=== PATIENT | female | born 1950 | race Caucasian/White ===

== ENCOUNTER 2018-08-26 11:35 | Observation (INO) | payer MEDICARE, OTHER ==
[2018-08-26] MEDS ORDERED: Sodium Chloride 0.9% 1000 ML 1,000 ML IV SCH (11:45)
[2018-08-26 11:55] LABS: BASOPHIL % 0.9 % (0.0-0.4); Basophil (Absolute #) 0.07 (0-0.4); Eosinophil % 1.8 % (0.00-5.0); Eosinophil (Absolute #) 0.14 (0-0.5); Granulocyte Absolute (ANC) 4.49 (1.4-6.9); Granulocytes % 58.3 % (36.0-66.0); Hematocrit 42.3 % (35-47); Hemoglobin 13.8 gm/dl (12.0-16.0); Lymphocyte (Absolute #) 2.44 (1.0-4.6); Lymphocytes % 31.6 % (24.0-44.0); Mean Corpuscular Hemoglobin 28.4 pg (26-32); Mean Corpuscular Hgb Concent. 32.6 g/dl (32-36); Mean Platelet Volume 9.9 fl (6-9.5); Monocyte (Absolute #) 0.57 (0.0-1.3); Monocytes % 7.4 % (0.0-12.0); Platelet Count 259 K/mm3 (150-450); Red Blood Count 4.86 M/mm3 (4.1-5.4); Red Cell Distribution Width 14.8 % (11.5-14.0); White Blood Count 7.7 K/mm3 (4.0-10.5)
--- NOTE | 2018-08-26 12:12 | XRAY ---
Indication: Chest pain. Comparison: September 04, 2010. PA/lateral chest demonstrates normal heart and lungs again with incidental right base calcified granuloma. Bony thorax intact again with minimal degenerative changes. No new/acute findings. Impression: Nonacute chest with chronic features.
[2018-08-26] MEDS ORDERED: Sodium Chloride 0.9% 1000 ML 1,000 ML ONE (12:22)
[2018-08-26 12:38] LABS: ALKALINE PHOSPHATASE 63 U/L (38-126); ANION GAP 16.6 MEQ/L (5-15); BLOOD UREA NITROGEN 15 mg/dL (7-17); CHLORIDE 95 mmol/L (98-107); Calcium 10.3 mg/dL (8.4-10.2); Carbon Dioxide 28 mmol/L (22-30); Creatinine 1 0.65 mg/dL (0.52-1.04); Glucose 98 mg/dL (74-106); Potassium 4.4 mmol/L (3.5-5.1); SGOT/AST 30 U/L (14-36); SGPT/ALT 28 U/L (0-35); SODIUM 135 mmol/L (137-145); Total Protein 7.5 g/dL (6.3-8.2)
--- NOTE | 2018-08-26 12:47 | ERPHSYRPT ---
- History of Present Illness Historian: patient Exam Limitations: no limitations Patient Subjective Stated Complaint: pt here for chest pain for a week now off and on, worse today, states it is a pressure to left side of chest, pt had heart stent a year ago Triage Nursing Assessment: pt alert,resp easy, skin w/d/p, chest clear Physician History: Pt is a pleasant 67 y/o female with h/o CAD with a stent. Pt states, from last Saturday08/22/18, she had chest discomfort. Pt states, can't describe it, but she did not take anything for it. Pain was coming and going, and she had some radiation to the back. No pain in left UE or jaw. Pain did not change with inhalation, or change in position. No diaphoresis. No N/V/D. Non reproducible. Today the ain was worse, and pt called her PCP, that told her to come to ER. Timing/Duration: day(s) (From Saturday08/22/18) Activities at Onset: none Quality: aching Location: substernal (with radiation to the back) Chest Pain Radiation: back Severity of Pain-Max: moderate Severity of Pain-Current: none Modifying Factors: Improves With: nothing Associated Symptoms: denies symptoms Prior Chest Pain/Cardiac Workup: cardiac cath (With a stent that was placed a year ago.) Nitro Today/Relief: no nitro taken today Aspirin Treatment Today: 81 mg x 1 Allergies/Adverse Reactions: codeine Allergy (Verified 08/26/18 11:42) vomitting tramadol Adverse Reaction (Verified 08/26/18 11:43) Home Medications: Amlodipine Besylate 10 mg [Norvasc 10 MG] 10 mg PO DAILY 06/16/13 [History] Clopidogrel Bisulfate 75 mg [PLAVIX 75 MG Tablet] 75 mg PO DAILY 06/16/13 [History] Glimepiride 2 mg [Amaryl 2 MG] 2 mg PO DAILY 06/16/13 [History] Losartan/Hydrochlorothiazide [Losartan-Hctz 100-25 mg Tab] 1 each PO DAILY 06/16 [History] Dapagliflozin Propanediol [Farxiga] 10 mg DAILY 08/26/18 [History] Metformin HCl 500 mg [Glucophage 500 MG] 1,000 mg BID 08/26/18 [History] Metoprolol Tartrate 25 mg [Lopressor 25MG Tab] 25 mg TID 08/26/18 [History ] Omeprazole 20 MG [Prilosec 20 mg] 20 mg DAILY 08/26/18 [History] Hx Influenza Vaccination/Date Given: No Hx Pneumococcal Vaccination/Date Given: Yes Immunizations Up to Date: Yes - Review of Systems Constitutional: No Symptoms Eyes: No Symptoms Ears, Nose, & Throat: No Symptoms Respiratory: No Cough, No Dyspnea Cardiac: Chest Pain Abdominal/Gastrointestinal: No Abdominal Pain, No Nausea, No Vomiting, No Diarrhea Musculoskeletal: No Back Pain, No Neck Pain Skin: No Rash Neurological: No Dizziness, No Focal Weakness, No Sensory Changes Psychological: No Symptoms Endocrine: No Symptoms All Other Systems: Reviewed and Negative - Past Medical History Pertinent Past Medical History: Yes Neurological History: Stroke ENT History: Cataracts, Other Cardiac History: Congenital Heart Disease, High Cholesterol, Hypertension Respiratory History: No Pertinent History Endocrine Medical History: Diabetes Type II Musculoskeletal History: Arthritis GI Medical History: GERD History: No Pertinent History Psycho-Social History: No Pertinent History Female Reproductive Disorders: Other Other Medical History: 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 , 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, laser surgery L eye, lumpectomy L breast-non cancerous - Past Surgical History Past Surgical History: Yes Neuro Surgical History: No Pertinent History Cardiac: Cardiac Catheterization, Cardiac Stent Respiratory: No Pertinent History Gastrointestinal: No Pertinent History Genitourinary: No Pertinent History Musculoskeletal: Orthopedic Surgery Female Surgical History: Section, Lumpectomy Other Surgical History: bilateral knee scopes - Social History Smoking Status: Never smoker How long have you smoked: 10 Exposure to second hand smoke: No Drug Use: none Patient Lives Alone: No - Female History Hx Last Menstrual Period: psot - Nursing Vital Signs Nursing Vital Signs: Initial Vital Signs Temperature 98.2 F 08/26/18 11:35 Pulse Rate 66 08/26/18 11:35 Respiratory Rate 16 08/26/18 11:35 Blood Pressure 173/85 08/26/18 11:35 O2 Sat by Pulse Oximetry 98 08/26/18 11:35 Pain Scale Pain Intensity 6 - Physical Exam General Appearance: no apparent distress, alert Eye Exam: PERRL/EOMI, eyes nml inspection Ears, Nose, Throat Exam: normal ENT inspection, moist mucous membranes Neck Exam: normal inspection, non-tender, supple, full range of motion Respiratory Exam: normal breath sounds, lungs clear, No respiratory distress Cardiovascular Exam: regular rate/rhythm (At this point, pt denies chest pain), normal heart sounds Gastrointestinal/Abdomen Exam: soft, No tenderness, No mass Back Exam: normal inspection, No CVA tenderness, No vertebral tenderness Extremity Exam: normal inspection, normal range of motion Neurologic Exam: alert, oriented x 3, cooperative, normal mood/affect, sensation nml, No motor deficits Skin Exam: normal color, warm, dry SpO2: 98 Oxygen Delivery: Room Air - Course Nursing assessment & vital signs reviewed: Yes EKG Interpreted by Me: RATE (63bpm), Sinus Rhythm, NORMAL AXIS, NORMAL QRS, NORMAL ST-T - Radiology Exams Chest X-ray Interpretation: Reviewed by me, No Pneumonia, No Pneumothorax (Non acute chest with chronic features) Ordered Tests: Active Orders 24 hr Category Date Time Status [employer] STAT Care 08/26/18 11:38 Active IV Insertion STAT Care 08/26/18 11:37 Active CHEST 2 VIEWS (PA AND LAT) Stat Exams 08/26/18 11:38 Completed CBC W DIFF Stat Lab 08/26/18 11:42 Completed CMP Stat Lab 08/26/18 11:42 Completed D-DIMER QUANTITATION Stat Lab 08/26/18 11:42 Received TROPONIN Q3H Lab 08/26/18 11:42 Completed TROPONIN Q3H Lab 08/26/18 14:45 Ordered TROPONIN Q3H Lab 08/26/18 17:45 Ordered TROPONIN Q3H Lab 08/26/18 20:45 Ordered TROPONIN Q3H Lab 08/26/18 23:45 Ordered Medication Summary Generic Name Dose Route Start Last Admin Trade Name Freq PRN Reason Stop Dose Admin Sodium Chloride 1,000 mls @ 100 mls/hr 08/26/18 11:45 08/26/18 12:23 Sodium Chloride 0.9% 1000 Ml IV 09/25/18 11:44 100 mls/hr .Q10H BERTA Administration Lab/Rad Data: Laboratory Result Diagrams 08/26/18 11:42 08/26/18 11:42 Laboratory Results 08/26/18 08/26/18 08/26/18 Range/Units 11:42 11:42 11:42 WBC 7.7 (4.0-10.5) K/mm3 RBC 4.86 (4.1-5.4) M/mm3 Hgb 13.8 (12.0-16.0) gm/dl Hct 42.3 (35-47) % MCV 87.0 (78-100) fl MCH 28.4 (26-32) pg MCHC 32.6 (32-36) g/dl RDW 14.8 H (11.5-14.0) % Plt Count 259 (150-450) K/mm3 MPV 9.9 H (6-9.5) fl Gran % 58.3 (36.0-66.0) % Eos # (Auto) 0.14 (0-0.5) Absolute Lymphs (auto) 2.44 (1.0-4.6) Absolute Monos (auto) 0.57 (0.0-1.3) Lymphocytes % 31.6 (24.0-44.0) % Monocytes % 7.4 (0.0-12.0) % Eosinophils % 1.8 (0.00-5.0) % Basophils % 0.9 (0.0-0.4) % Absolute Granulocytes 4.49 (1.4-6.9) Basophils # 0.07 (0-0.4) Sodium 135 L (137-145) mmol/L Potassium 4.4 (3.5-5.1) mmol/L Chloride 95 L (98-107) mmol/L Carbon Dioxide 28 (22-30) mmol/L Anion Gap 16.6 H (5-15) MEQ/L BUN 15 (7-17) mg/dL Creatinine 0.65 (0.52-1.04) mg/dL Estimated GFR > 60.0 ML/MIN Glucose 98 (74-106) mg/dL Calcium 10.3 H (8.4-10.2) mg/dL Total Bilirubin 0.50 (0.2-1.3) mg/dL AST 30 (14-36) U/L ALT 28 (0-35) U/L Alkaline Phosphatase 63 (38-126) U/L Troponin I < 0.012 (0.000-0.034) ng/mL Serum Total Protein 7.5 (6.3-8.2) g/dL Albumin 5.0 (3.5-5.0) g/dL - Progress Progress: unchanged Air Movement: fair Blood Culture(s) Obtained: No Antibiotics given: No Discussed with : Sunny Will see patient in: hospital (observation) Counseled pt/family regarding: need for follow-up, rad results - Departure Time of Disposition: 13:01 Departure Disposition: Observation Clinical Impression: Chest pain in adult Condition: Stable Critical Care Time: No Referrals: DOCTOR,NO FAMILY [Primary Care Provider] - Instructions: Chest Pain (DC) Additional Instructions: F/u with your director validation on D/C from hospital
[2018-08-26] MEDS ORDERED: MAALOX ES 30 ML UNIT DOSE PO PRN (13:27)
[2018-08-26] MEDS ORDERED: TYLENOL 325 MG PO PRN (13:27)
[2018-08-26] MEDS ORDERED: NovoLOG Insulin SQ PRN (13:27)
[2018-08-26] MEDS ORDERED: MILK OF MAGNESIA 30 ML PO PRN (13:27)
[2018-08-26] MEDS ORDERED: Zofran 4 MG/2 ML VIAL IV PRN (13:27)
[2018-08-26] MEDS ORDERED: Senokot-S Tablet PO PRN (13:27)
[2018-08-26] MEDS ORDERED: Sodium Chloride 0.9% 500 ML 500 ML IV SCH (13:30)
[2018-08-26] MEDS: ENOXAPARIN SODIUM SQ SCH (15:42)
[2018-08-26] MEDS: Glucophage 500 MG PO SCH (18:19)
[2018-08-26] MEDS ORDERED: NON-FORMULARY ITEM (Acetaminophen [Tylenol] 650 MG) PO SCH (22:00)
[2018-08-26] MEDS: TYLENOL 325 MG PO SCH (22:21)
[2018-08-26] MEDS: Lopressor 25MG Tab PO SCH (22:21)
[2018-08-27 00:54] LABS: Risk Ratio 2.4
[2018-08-27] MEDS ORDERED: Amaryl 2 MG PO SCH (08:00)
[2018-08-27] MEDS: Glucophage 500 MG PO SCH (08:04)
[2018-08-27] MEDS: ENOXAPARIN SODIUM SQ SCH (09:13)
[2018-08-27] MEDS: Lopressor 25MG Tab PO SCH (09:14)
[2018-08-27] MEDS: TYLENOL 325 MG PO SCH (09:14)
[2018-08-27] MEDS ORDERED: NON-FORMULARY ITEM (Aspirin [Aspirin] 81 MG) PO SCH (10:00)
[2018-08-27] MEDS ORDERED: Zocor 10MG PO SCH (10:00)
[2018-08-27] MEDS ORDERED: NON-FORMULARY ITEM (Sitagliptin Phosphate [Januvia] 100 MG) PO SCH (10:00)
[2018-08-27] MEDS ORDERED: hydroDIURIL 25 MG PO SCH (10:00)
[2018-08-27] MEDS ORDERED: PLAVIX 75 MG Tablet PO SCH (10:00)
[2018-08-27] MEDS ORDERED: NON-FORMULARY ITEM (Losartan/Hydrochlorothiazide [Losartan-Hctz 100-25 Mg Tab] 1 EACH) PO SCH (10:00)
[2018-08-27] MEDS ORDERED: Protonix 40MG Tablet PO SCH (10:00)
[2018-08-27] MEDS ORDERED: NORVASC 5 MG PO SCH (10:00)
[2018-08-27] MEDS ORDERED: NON-FORMULARY ITEM (Amlodipine Besylate 10 Mg [Norvasc 10 Mg] 10 MG) PO SCH (10:00)
[2018-08-27] MEDS ORDERED: Januvia 50 MG PO SCH (10:00)
[2018-08-27] MEDS ORDERED: Cozaar 50 MG PO SCH (10:00)
[2018-08-27] MEDS ORDERED: ECOTRIN 81 MG PO SCH (10:00)
--- NOTE | 2018-08-27 11:26 | PCM.SSS ---
History of Present Illness - Chief Complaint Chief Complaint: Chest pain for 1 day History of Present Illness: is a 67 year old female. with h/o CAD with a stent. Pt states, from last Saturday08/22/18, she had chest discomfort. Pt states, can't describe it, but she did not take anything for it. Pain was coming and going, and she had some radiation to the back. No pain in left UE or jaw. Pain did not change with inhalation, or change in position. No diaphoresis. No N/V/D. Non reproducible. Today the ain was worse, and pt called her PCP, that told her to come to ER. Timing/Duration: day(s) (From Saturday08/22/18) Activities at Onset: none Quality: aching Location: substernal (with radiation to the back) Chest Pain Radiation: back Severity of Pain-Max: moderate Severity of Pain-Current: none Modifying Factors: Improves With: nothing Associated Symptoms: denies symptoms Prior Chest Pain/Cardiac Workup: cardiac cath (With a stent that was placed a year ago.) Nitro Today/Relief: no nitro taken today Aspirin Treatment Today: 81 mg x 1 - Review of Systems Constitutional: No Fever, No Chills Eyes: No Symptoms Ears, Nose, & Throat: No Symptoms Respiratory: No Cough, No Short Of Breath Cardiac: Chest Pain, No Edema, No Syncope Abdominal/Gastrointestinal: No Abdominal Pain, No Nausea, No Vomiting, No Diarrhea Genitourinary Symptoms: No Dysuria Musculoskeletal: No Back Pain, No Neck Pain Skin: No Rash Neurological: No Dizziness, No Focal Weakness, No Sensory Changes Psychological: No Symptoms Endocrine: No Symptoms Hematologic/Lymphatic: No Symptoms Immunological/Allergic: No Symptoms Medications & Allergies Home Medications: Home Medication List Amlodipine Besylate 10 mg [Norvasc 10 MG] 10 mg PO DAILY 06/16/13 [History Confirmed 08/26/18] Clopidogrel Bisulfate 75 mg [PLAVIX 75 MG Tablet] 75 mg PO DAILY 06/16/13 [History Confirmed 08/26/18] Glimepiride 2 mg [Amaryl 2 MG] 1.5 tab PO DAILY 06/16/13 [History Confirmed 08/26/18] Losartan/Hydrochlorothiazide [Losartan-Hctz 100-25 mg Tab] 1 each PO DAILY 06/16 [History Confirmed 08/26/18] Acetaminophen [Tylenol] 650 mg PO BID 08/26/18 [History Confirmed 08/26/18] Aspirin 81 mg PO DAILY 08/26/18 [History Confirmed 08/26/18] Metformin HCl 500 mg [Glucophage 500 MG] 1,000 mg PO BID 08/26/18 [ History Confirmed 08/26/18] Metoprolol Tartrate 25 mg [Lopressor 25MG Tab] 1.5 tab PO BID 08/26/18 [ History Confirmed 08/26/18] Omeprazole 20 MG [Prilosec 20 mg] 20 mg PO DAILY 08/26/18 [History Confirmed ] Sitagliptin Phosphate [Januvia] 100 mg PO DAILY 08/26/18 [History Confirmed ] Allergies/Adverse Reactions: Allergies Allergy/AdvReac Type Severity Reaction Status Date / Time codeine AdvReac vomitting Verified 08/26/18 15:00 diazepam [From Valium] AdvReac Vomiting Verified 08/26/18 15:00 tramadol AdvReac vomiting Verified 08/26/18 15:00 dizziness - Past Medical History Past Medical History: Yes Neurological History: Stroke ENT History: Cataracts, Other Cardiac History: Coronary Artery Disease, High Cholesterol, Hypertension Respiratory History: No Pertinent History Endocrine Medical History: Diabetes Type II Musculoskelatal History: Arthritis GI Medical History: GERD, Gallbladder Disease History: No Pertinent History Pyscho-Social History: No Pertinent History Reproductive Disorders: Other Comment: 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 , 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, laser surgery L eye, lumpectomy L breast-non cancerous - Female History Hx Last Menstrual Period: post - Past Surgical History Past Surgical History: Yes Neuro Surgical History: No Pertinent History Cardiac History: Cardiac Catheterization, Cardiac Stent Respiratory Surgery: No Pertinent History GI Surgical History: No Pertinent History Genitourinary Surgical Hx: No Pertinent History Musculskeletal Surgical Hx: Orthopedic Surgery Female Surgical History: Section, Tubal Ligation, Lumpectomy Other Surgical History: bilateral knee scopes - Social History Smoking Status: Former smoker How long have you smoked: 10 Exposure to second hand smoke: No Alcohol: None Drug Use: none - Physical Exam Vital Signs: Vital Signs - 24 hr Temp Pulse Pulse Resp BP Pulse Ox 10/31/18 08:00 95 08/27/18 07:25 97.8 F 70 18 118/56 95 08/27/18 04:00 98.3 F 64 17 112/61 94 L 08/26/18 23:49 97.9 F 75 16 125/60 98 08/26/18 20:00 98 08/26/18 19:21 98.0 F 69 18 128/60 98 08/26/18 15:43 68 L 08/26/18 15:36 97.8 F 72 20 138/78 68 L 08/26/18 14:10 97.8 F 66 24 149/67 98 08/26/18 13:02 98 08/26/18 12:58 68 16 136/57 97 08/26/18 12:27 64 16 138/83 98 08/26/18 12:05 98 H 08/26/18 11:35 98.2 F 66 16 173/85 98 General Appearance: no apparent distress, alert Neurologic Exam: alert, oriented x 3, cooperative, normal mood/affect, nml cerebellar function, nml station & gait, sensation nml, No motor deficits Eye Exam: PERRL/EOMI, eyes nml inspection Ears, Nose, Throat Exam: normal ENT inspection, TMs normal, pharynx normal, moist mucous membranes Neck Exam: normal inspection, non-tender, supple, full range of motion Respiratory Exam: normal breath sounds, lungs clear, No respiratory distress Cardiovascular Exam: regular rate/rhythm, normal heart sounds, normal peripheral pulses Gastrointestinal/Abdomen Exam: soft, normal bowel sounds, No tenderness, No mass Back Exam: normal inspection, normal range of motion, No CVA tenderness, No vertebral tenderness Extremity Exam: normal inspection, normal range of motion, pelvis stable Skin Exam: normal color, warm, dry, No rash Lymphatic Exam: No adenopathy Results - Labs Lab/Micro Results: Accuchecks Date 08/27/18 Date 08/26/18 Date 08/26/18 Time 07:30 Time 21:00 Time 16:30 Accucheck Value: 89 Accucheck Value: 75 Accucheck Value: 109 Lab Results-Last 24 Hours 08/26/18 08/26/18 08/26/18 Range/Units 00:05 11:42 11:42 WBC 7.7 (4.0-10.5) K/mm3 RBC 4.86 (4.1-5.4) M/mm3 Hgb 13.8 (12.0-16.0) gm/dl Hct 42.3 (35-47) % MCV 87.0 (78-100) fl MCH 28.4 (26-32) pg MCHC 32.6 (32-36) g/dl RDW 14.8 H (11.5-14.0) % Plt Count 259 (150-450) K/mm3 MPV 9.9 H (6-9.5) fl Gran % 58.3 (36.0-66.0) % Eos # (Auto) 0.14 (0-0.5) Absolute Lymphs (auto) 2.44 (1.0-4.6) Absolute Monos (auto) 0.57 (0.0-1.3) Lymphocytes % 31.6 (24.0-44.0) % Monocytes % 7.4 (0.0-12.0) % Eosinophils % 1.8 (0.00-5.0) % Basophils % 0.9 (0.0-0.4) % Absolute Granulocytes 4.49 (1.4-6.9) Basophils # 0.07 (0-0.4) D-Dimer (215-500) ng/mL Sodium 135 L (137-145) mmol/L Potassium 4.4 (3.5-5.1) mmol/L Chloride 95 L (98-107) mmol/L Carbon Dioxide 28 (22-30) mmol/L Anion Gap 16.6 H (5-15) MEQ/L BUN 15 (7-17) mg/dL Creatinine 0.65 (0.52-1.04) mg/dL Estimated GFR > 60.0 ML/MIN Glucose 98 (74-106) mg/dL Hemoglobin A1c (4.5-6.0) % Calcium 10.3 H (8.4-10.2) mg/dL Total Bilirubin 0.50 (0.2-1.3) mg/dL AST 30 (14-36) U/L ALT 28 (0-35) U/L Alkaline Phosphatase 63 (38-126) U/L Troponin I < 0.012 (0.000-0.034) ng/mL Serum Total Protein 7.5 (6.3-8.2) g/dL Albumin 5.0 (3.5-5.0) g/dL Triglycerides (30-150) mg/dL Cholesterol (50-200) mg/dL LDL Cholesterol (30-100) mg/dL HDL Cholesterol (40-60) mg/dL Heart Disease Risk Ratio 08/26/18 08/26/18 08/26/18 Range/Units 11:42 11:42 14:30 WBC (4.0-10.5) K/mm3 RBC (4.1-5.4) M/mm3 Hgb (12.0-16.0) gm/dl Hct (35-47) % MCV (78-100) fl MCH (26-32) pg MCHC (32-36) g/dl RDW (11.5-14.0) % Plt Count (150-450) K/mm3 MPV (6-9.5) fl Gran % (36.0-66.0) % Eos # (Auto) (0-0.5) Absolute Lymphs (auto) (1.0-4.6) Absolute Monos (auto) (0.0-1.3) Lymphocytes % (24.0-44.0) % Monocytes % (0.0-12.0) % Eosinophils % (0.00-5.0) % Basophils % (0.0-0.4) % Absolute Granulocytes (1.4-6.9) Basophils # (0-0.4) D-Dimer 457 (215-500) ng/mL Sodium (137-145) mmol/L Potassium (3.5-5.1) mmol/L Chloride (98-107) mmol/L Carbon Dioxide (22-30) mmol/L Anion Gap (5-15) MEQ/L BUN (7-17) mg/dL Creatinine (0.52-1.04) mg/dL Estimated GFR ML/MIN Glucose (74-106) mg/dL Hemoglobin A1c 6.07 H (4.5-6.0) % Calcium (8.4-10.2) mg/dL Total Bilirubin (0.2-1.3) mg/dL AST (14-36) U/L ALT (0-35) U/L Alkaline Phosphatase (38-126) U/L Troponin I < 0.012 (0.000-0.034) ng/mL Serum Total Protein (6.3-8.2) g/dL Albumin (3.5-5.0) g/dL Triglycerides (30-150) mg/dL Cholesterol (50-200) mg/dL LDL Cholesterol (30-100) mg/dL HDL Cholesterol (40-60) mg/dL Heart Disease Risk Ratio 08/26/18 08/26/18 08/26/18 Range/Units 15:10 18:00 21:02 WBC (4.0-10.5) K/mm3 RBC (4.1-5.4) M/mm3 Hgb (12.0-16.0) gm/dl Hct (35-47) % MCV (78-100) fl MCH (26-32) pg MCHC (32-36) g/dl RDW (11.5-14.0) % Plt Count (150-450) K/mm3 MPV (6-9.5) fl Gran % (36.0-66.0) % Eos # (Auto) (0-0.5) Absolute Lymphs (auto) (1.0-4.6) Absolute Monos (auto) (0.0-1.3) Lymphocytes % (24.0-44.0) % Monocytes % (0.0-12.0) % Eosinophils % (0.00-5.0) % Basophils % (0.0-0.4) % Absolute Granulocytes (1.4-6.9) Basophils # (0-0.4) D-Dimer (215-500) ng/mL Sodium (137-145) mmol/L Potassium (3.5-5.1) mmol/L Chloride (98-107) mmol/L Carbon Dioxide (22-30) mmol/L Anion Gap (5-15) MEQ/L BUN (7-17) mg/dL Creatinine (0.52-1.04) mg/dL Estimated GFR ML/MIN Glucose (74-106) mg/dL Hemoglobin A1c (4.5-6.0) % Calcium (8.4-10.2) mg/dL Total Bilirubin (0.2-1.3) mg/dL AST (14-36) U/L ALT (0-35) U/L Alkaline Phosphatase (38-126) U/L Troponin I < 0.012 < 0.012 < 0.012 (0.000-0.034) ng/mL Serum Total Protein (6.3-8.2) g/dL Albumin (3.5-5.0) g/dL Triglycerides (30-150) mg/dL Cholesterol (50-200) mg/dL LDL Cholesterol (30-100) mg/dL HDL Cholesterol (40-60) mg/dL Heart Disease Risk Ratio 08/27/18 Range/Units 00:05 WBC (4.0-10.5) K/mm3 RBC (4.1-5.4) M/mm3 Hgb (12.0-16.0) gm/dl Hct (35-47) % MCV (78-100) fl MCH (26-32) pg MCHC (32-36) g/dl RDW (11.5-14.0) % Plt Count (150-450) K/mm3 MPV (6-9.5) fl Gran % (36.0-66.0) % Eos # (Auto) (0-0.5) Absolute Lymphs (auto) (1.0-4.6) Absolute Monos (auto) (0.0-1.3) Lymphocytes % (24.0-44.0) % Monocytes % (0.0-12.0) % Eosinophils % (0.00-5.0) % Basophils % (0.0-0.4) % Absolute Granulocytes (1.4-6.9) Basophils # (0-0.4) D-Dimer (215-500) ng/mL Sodium (137-145) mmol/L Potassium (3.5-5.1) mmol/L Chloride (98-107) mmol/L Carbon Dioxide (22-30) mmol/L Anion Gap (5-15) MEQ/L BUN (7-17) mg/dL Creatinine (0.52-1.04) mg/dL Estimated GFR ML/MIN Glucose (74-106) mg/dL Hemoglobin A1c (4.5-6.0) % Calcium (8.4-10.2) mg/dL Total Bilirubin (0.2-1.3) mg/dL AST (14-36) U/L ALT (0-35) U/L Alkaline Phosphatase (38-126) U/L Troponin I (0.000-0.034) ng/mL Serum Total Protein (6.3-8.2) g/dL Albumin (3.5-5.0) g/dL Triglycerides 286 H (30-150) mg/dL Cholesterol 115 (50-200) mg/dL LDL Cholesterol 44 (30-100) mg/dL HDL Cholesterol 48 (40-60) mg/dL Heart Disease Risk Ratio 2.4 Accuchecks Date 08/27/18 Date 08/26/18 Date 08/26/18 Time 07:30 Time 21:00 Time 16:30 Accucheck Value: 89 Accucheck Value: 75 Accucheck Value: 109 - Radiology Impressions Radiology Exams & Impressions: Radiology Procedures Category Date Time Status CHEST 2 VIEWS (PA AND LAT) Stat Exams 08/26/18 11:38 Completed ECHO W/2D AND DOPPLER [US] Routine Exams 08/26/18 13:27 Taken - Other Procedures and Tests Respiratory Therapy 08/28/18 05:00 EKG ONCE 08/29/18 05:00 EKG ONCE Assessment/Plan (1) Chest pain in adult Current Visit: Yes Status: Acute Assessment & Plan: Last Vital Signs Temp 97.8 F 08/27/18 07:25 Pulse 70 08/27/18 07:25 Resp 18 08/27/18 07:25 BP 118/56 08/27/18 07:25 Pulse Ox 95 08/27/18 08:00 Allergies codeine Adverse Reaction (Verified 08/26/18 15:00) vomitting diazepam [From Valium] Adverse Reaction (Verified 08/26/18 15:00) Vomiting tramadol Adverse Reaction (Verified 08/26/18 15:00) vomiting dizziness Active Medications Acetaminophen (Tylenol 325 Mg) 650 mg PO Q4H PRN PRN PRN Reason: PAIN AND/OR FEVER Stop: 09/25/18 13:26 Acetaminophen (Tylenol 325 Mg) 650 mg PO BID BERTA Stop: 09/25/18 21:59 Last Admin: 08/27/18 09:14 Dose: 650 mg Al Hydrox/Mg Hydrox/Simethicone (Maalox Es 30 Ml Unit Dose) 30 ml PO Q4H PRN PRN PRN Reason: INDIGESTION Stop: 09/25/18 13:26 Amlodipine Besylate (Norvasc 5 Mg) 10 mg PO DAILY BERTA Stop: 09/26/18 09:59 Last Admin: 08/27/18 09:13 Dose: 10 mg Aspirin (Ecotrin 81 Mg) 81 mg PO DAILY [facility] Stop: 09/26/18 09:59 Last Admin: 08/27/18 09:16 Dose: 81 mg Clopidogrel Bisulfate (Plavix 75 Mg Tablet) 75 mg PO DAILY BERTA Stop: 09/26/18 09:59 Last Admin: 08/27/18 09:16 Dose: 75 mg Enoxaparin Sodium (Enoxaparin Sodium) 40 mg SQ DAILY BERTA Stop: 09/25/18 13:59 Last Admin: 08/27/18 09:13 Dose: 40 mg Glimepiride (Amaryl 2 Mg) 3 mg PO BREAKFAST [facility] Stop: 09/26/18 07:59 Last Admin: 08/27/18 08:04 Dose: 3 mg Hydrochlorothiazide (Hydrodiuril 25 Mg) 25 mg PO DAILY [facility] Stop: 09/26/18 09:59 Last Admin: 08/27/18 09:13 Dose: 25 mg Sodium Chloride (Sodium Chloride 0.9% 500 Ml) 500 mls @ 20 mls/hr IV .Q24H [facility] Stop: 09/25/18 13:29 Last Admin: 08/26/18 15:44 Dose: 20 mls/hr Insulin Aspart (Novolog Insulin) 0 unit SQ PRN PRN PRN Reason: HYPERGLYCEMIA Stop: 09/25/18 13:26 Losartan Potassium (Cozaar 50 Mg) 100 mg PO DAILY [facility] Stop: 09/26/18 09:59 Last Admin: 08/27/18 09:13 Dose: 100 mg Magnesium Hydroxide (Milk Of Magnesia 30 Ml) 30 - 60 ml PO QDP PRN PRN Reason: CONSTIPATION Stop: 09/25/18 13:26 Metformin HCl (Glucophage 500 Mg) 1,000 mg PO BIDWM [facility] Stop: 09/25/18 17:59 Last Admin: 08/27/18 08:04 Dose: 1,000 mg Metoprolol Tartrate (Lopressor 25mg Tab) 37.5 mg PO BID [facility] Stop: 09/25/18 21:59 Last Admin: 08/27/18 09:14 Dose: 37.5 mg Ondansetron HCl (Zofran 4 Mg/2 Ml Vial) 4 mg IV Q4H PRN PRN PRN Reason: NAUSEA/VOMITING Stop: 09/25/18 13:26 Pantoprazole Sodium (Protonix 40mg Tablet) 40 mg PO DAILY [facility] Stop: 09/26/18 09:59 Last Admin: 08/27/18 09:16 Dose: 40 mg Senna/Docusate Sodium (Senokot-S Tablet) 2 udtab PO BID PRN PRN PRN Reason: CONSTIPATION Stop: 09/25/18 13:26 Simvastatin (Zocor 10mg) 10 mg PO DAILY [facility] Stop: 09/26/18 09:59 Last Admin: 08/27/18 11:01 Dose: 10 mg Sitagliptin Phosphate (Januvia 50 Mg) 100 mg PO DAILY [facility] Stop: 09/26/18 09:59 Last Admin: 08/27/18 09:14 Dose: 100 mg Intake & Output 08/26/18 08/27/18 11:59 11:59 Intake Total 1852 Output Total 500 Balance 1352 Weight 72.575 kg 74 kg Orders 08/26/18 18:00 Metformin HCl 500 mg [Glucophage 500 MG] 1,000 mg PO BIDWM 08/26/18 22:00 Acetaminophen 325 mg [Tylenol 325 mg] 650 mg PO BID Metoprolol Tartrate 25 mg [Lopressor 25MG Tab] 37.5 mg PO BID 08/27/18 08:00 Glimepiride 2 mg [Amaryl 2 MG] 3 mg PO BREAKFAST 08/27/18 10:00 Amlodipine Besylate 5 mg [Norvasc 5 mg] 10 mg PO DAILY Aspirin EC 81 mg [Ecotrin 81 mg] 81 mg PO DAILY Clopidogrel Bisulfate 75 mg [PLAVIX 75 MG Tablet] 75 mg PO DAILY Hydrochlorothiazide 25 mg [hydroDIURIL 25 MG] 25 mg PO DAILY Losartan Potassium 50 mg [Cozaar 50 MG] 100 mg PO DAILY PANTOPRAZOLE 40 mg Tablet [Protonix 40MG Tablet] 40 mg PO DAILY Simvastatin 10 mg [Zocor 10MG] 10 mg PO DAILY Sitagliptin Phosphate 50 MG [Januvia 50 MG] 100 mg PO DAILY 08/28/18 05:00 EKG ONCE 08/29/18 05:00 EKG ONCE Lab Tests 08/26/18 08/26/18 08/26/18 00:05 11:42 11:42 WBC 7.7 RBC 4.86 Hgb 13.8 Hct 42.3 MCV 87.0 MCH 28.4 MCHC 32.6 RDW 14.8 H Plt Count 259 MPV 9.9 H Gran % 58.3 Eos # (Auto) 0.14 Absolute Lymphs (auto) 2.44 Absolute Monos (auto) 0.57 Lymphocytes % 31.6 Monocytes % 7.4 Eosinophils % 1.8 Basophils % 0.9 Absolute Granulocytes 4.49 Basophils # 0.07 D-Dimer Sodium 135 L Potassium 4.4 Chloride 95 L Carbon Dioxide 28 Anion Gap 16.6 H BUN 15 Creatinine 0.65 Estimated GFR > 60.0 Glucose 98 Hemoglobin A1c Calcium 10.3 H Total Bilirubin 0.50 AST 30 ALT 28 Alkaline Phosphatase 63 Troponin I < 0.012 Serum Total Protein 7.5 Albumin 5.0 Triglycerides Cholesterol LDL Cholesterol HDL Cholesterol Heart Disease Risk Ratio 08/26/18 08/26/18 08/26/18 11:42 11:42 14:30 WBC RBC Hgb Hct MCV MCH MCHC RDW Plt Count MPV Gran % Eos # (Auto) Absolute Lymphs (auto) Absolute Monos (auto) Lymphocytes % Monocytes % Eosinophils % Basophils % Absolute Granulocytes Basophils # D-Dimer 457 Sodium Potassium Chloride Carbon Dioxide Anion Gap BUN Creatinine Estimated GFR Glucose Hemoglobin A1c 6.07 H Calcium Total Bilirubin AST ALT Alkaline Phosphatase Troponin I < 0.012 Serum Total Protein Albumin Triglycerides Cholesterol LDL Cholesterol HDL Cholesterol Heart Disease Risk Ratio 08/26/18 08/26/18 08/26/18 15:10 18:00 21:02 WBC RBC Hgb Hct MCV MCH MCHC RDW Plt Count MPV Gran % Eos # (Auto) Absolute Lymphs (auto) Absolute Monos (auto) Lymphocytes % Monocytes % Eosinophils % Basophils % Absolute Granulocytes Basophils # D-Dimer Sodium Potassium Chloride Carbon Dioxide Anion Gap BUN Creatinine Estimated GFR Glucose Hemoglobin A1c Calcium Total Bilirubin AST ALT Alkaline Phosphatase Troponin I < 0.012 < 0.012 < 0.012 Serum Total Protein Albumin Triglycerides Cholesterol LDL Cholesterol HDL Cholesterol Heart Disease Risk Ratio 08/27/18 00:05 WBC RBC Hgb Hct MCV MCH MCHC RDW Plt Count MPV Gran % Eos # (Auto) Absolute Lymphs (auto) Absolute Monos (auto) Lymphocytes % Monocytes % Eosinophils % Basophils % Absolute Granulocytes Basophils # D-Dimer Sodium Potassium Chloride Carbon Dioxide Anion Gap BUN Creatinine Estimated GFR Glucose Hemoglobin A1c Calcium Total Bilirubin AST ALT Alkaline Phosphatase Troponin I Serum Total Protein Albumin Triglycerides 286 H Cholesterol 115 LDL Cholesterol 44 HDL Cholesterol 48 Heart Disease Risk Ratio 2.4 Code(s): R07.9 - CHEST PAIN, UNSPECIFIED (2) CAD (coronary artery disease) Current Visit: Yes Status: Acute Qualifiers: Coronary Disease-Associated Artery/Lesion type: [place] artery [place] vs. transplanted heart: [place] heart Associated angina: with stable angina Qualified Code(s): I25.118 - Atherosclerotic heart disease of [place] coronary artery with other forms of angina pectoris Code(s): I25.10 - ATHSCL HEART DISEASE OF [place] CORONARY ARTERY W/O ANG PCTRS (3) Type 2 diabetes mellitus Current Visit: Yes Status: Acute Qualifiers: Diabetes mellitus fpc insulin use: without fpc use Diabetes mellitus complication status: without complication Qualified Code(s): E11.9 - Type 2 diabetes mellitus without complications (4) Hypertension Current Visit: Yes Status: Acute Qualifiers: Hypertension type: essential hypertension Qualified Code(s): I10 - Essential (primary) hypertension Code(s): I10 - ESSENTIAL (PRIMARY) HYPERTENSION Hospital Summary - Hospital Course Hospital Course: Chief Complaint Diagnosis Chest pain r/o Allergies Allergy/AdvReac Type Severity Reaction Status Date / Time codeine AdvReac vomitting Verified 08/26/18 15:00 diazepam [From Valium] AdvReac Vomiting Verified 08/26/18 15:00 tramadol AdvReac vomiting Verified 08/26/18 15:00 dizziness Vital Signs (Last 24 hours) Temp Pulse Pulse Resp BP Pulse Ox 08/27/18 08:00 95 08/27/18 07:25 97.8 F 70 18 118/56 95 08/27/18 04:00 98.3 F 64 17 112/61 94 L 08/26/18 23:49 97.9 F 75 16 125/60 98 08/26/18 20:00 98 08/26/18 19:21 98.0 F 69 18 128/60 98 08/26/18 15:43 68 L 08/26/18 15:36 97.8 F 72 20 138/78 68 L 08/26/18 14:10 97.8 F 66 24 149/67 98 08/26/18 13:02 98 08/26/18 12:58 68 16 136/57 97 08/26/18 12:27 64 16 138/83 98 08/26/18 12:05 98 H 08/26/18 11:35 98.2 F 66 16 173/85 98 Home Medications Medication Instructions Recorded Confirmed Last Taken Type Acetaminophen [Tylenol] 650 mg PO BID 08/26/18 08/26/18 08/26/18 History Aspirin 81 mg PO DAILY 08/26/18 08/26/18 08/26/18 History Metformin HCl 500 mg 1,000 mg PO BID 08/26/18 08/26/18 08/26/18 History [Glucophage 500 MG] Metoprolol Tartrate 25 mg 1.5 tab PO BID 08/26/18 08/26/18 08/26/18 History [Lopressor 25MG Tab] Omeprazole 20 MG [Prilosec 20 mg] 20 mg PO DAILY 08/26/18 08/26/18 08/26/18 History Sitagliptin Phosphate [Januvia] 100 mg PO DAILY 08/26/18 08/26/18 08/26/18 History Current Medications Generic Name Dose Route Start Last Admin Trade Name Freq PRN Reason Stop Dose Admin Acetaminophen 650 mg 08/26/18 13:27 Tylenol 325 Mg PO 09/25/18 13:26 Q4H PRN PRN PAIN AND/OR FEVER Acetaminophen 650 mg 08/26/18 22:00 08/27/18 09:14 Tylenol 325 Mg PO 09/25/18 21:59 650 mg BID BERTA Administration Al Hydrox/Mg Hydrox/Simethicone 30 ml 08/26/18 13:27 Maalox Es 30 Ml Unit Dose PO 09/25/18 13:26 Q4H PRN PRN INDIGESTION Amlodipine Besylate 10 mg 08/27/18 10:00 08/27/18 09:13 Norvasc 5 Mg PO 09/26/18 09:59 10 mg DAILY BERTA Administration Aspirin 81 mg 08/27/18 10:00 08/27/18 09:16 Ecotrin 81 Mg PO 09/26/18 09:59 81 mg DAILY BERTA Administration Clopidogrel Bisulfate 75 mg 08/27/18 10:00 08/27/18 09:16 Plavix 75 Mg Tablet PO 09/26/18 09:59 75 mg DAILY BERTA Administration Enoxaparin Sodium 40 mg 08/26/18 14:00 08/27/18 09:13 Enoxaparin Sodium SQ 09/25/18 13:59 40 mg DAILY BERTA Administration Glimepiride 3 mg 08/27/18 08:00 08/27/18 08:04 Amaryl 2 Mg PO 09/26/18 07:59 3 mg BREAKFAST BERTA Administration Hydrochlorothiazide 25 mg 08/27/18 10:00 08/27/18 09:13 Hydrodiuril 25 Mg PO 09/26/18 09:59 25 mg DAILY BERTA Administration Sodium Chloride 500 mls @ 20 mls/hr 08/26/18 13:30 08/26/18 15:44 Sodium Chloride 0.9% 500 Ml IV 09/25/18 13:29 20 mls/hr .Q24H BERTA Administration Insulin Aspart 0 unit 08/26/18 13:27 Novolog Insulin SQ 09/25/18 13:26 PRN PRN HYPERGLYCEMIA Losartan Potassium 100 mg 08/27/18 10:00 08/27/18 09:13 Cozaar 50 Mg PO 09/26/18 09:59 100 mg DAILY BERTA Administration Magnesium Hydroxide 30 - 60 ml 08/26/18 13:27 Milk Of Magnesia 30 Ml PO 09/25/18 13:26 QDP PRN CONSTIPATION Metformin HCl 1,000 mg 08/26/18 18:00 08/27/18 08:04 Glucophage 500 Mg PO 09/25/18 17:59 1,000 mg BIDWM BERTA Administration Metoprolol Tartrate 37.5 mg 08/26/18 22:00 08/27/18 09:14 Lopressor 25mg Tab PO 09/25/18 21:59 37.5 mg BID BERTA Administration Ondansetron HCl 4 mg 08/26/18 13:27 Zofran 4 Mg/2 Ml Vial IV 09/25/18 13:26 Q4H PRN PRN NAUSEA/VOMITING Pantoprazole Sodium 40 mg 08/27/18 10:00 08/27/18 09:16 Protonix 40mg Tablet PO 09/26/18 09:59 40 mg DAILY BERTA Administration Senna/Docusate Sodium 2 udtab 08/26/18 13:27 Senokot-S Tablet PO 09/25/18 13:26 BID PRN PRN CONSTIPATION Simvastatin 10 mg 08/27/18 10:00 08/27/18 11:01 Zocor 10mg PO 09/26/18 09:59 10 mg DAILY BERTA Administration Sitagliptin Phosphate 100 mg 08/27/18 10:00 08/27/18 09:14 Januvia 50 Mg PO 09/26/18 09:59 100 mg DAILY BERTA Administration Discontinued Medications Generic Name Dose Route Start Last Admin Trade Name Freq PRN Reason Stop Dose Admin Sodium Chloride 1,000 mls @ 100 mls/hr 08/26/18 11:45 08/26/18 12:23 Sodium Chloride 0.9% 1000 Ml IV 09/25/18 11:44 100 mls/hr .Q10H BERTA Administration Sodium Chloride Confirm 08/26/18 12:22 Sodium Chloride 0.9% 1000 Ml Administered 08/26/18 12:23 Dose 1,000 mls @ ud .ROUTE .STK-MED ONE Influenza Virus Vaccine 180 mcg 08/27/18 10:00 08/27/18 09:25 Fluzone High-Dose 2018-19 Syr IM 08/27/18 10:01 180 mcg .ONCE ONE Administration Intake & Output (Last 24 hours) 08/24/18 08/25/18 08/26/18 08/27/18 11:59 11:59 11:59 11:59 Intake Total 1852 Output Total 500 Balance 1352 Weight 72.575 kg 74 kg Laboratory Results (Last 24 hours) 08/27/18 08/26/18 08/26/18 00:05 21:02 18:00 WBC RBC Hgb Hct MCV MCH MCHC RDW Plt Count MPV Gran % Eos # (Auto) Absolute Lymphs (auto) Absolute Monos (auto) Lymphocytes % Monocytes % Eosinophils % Basophils % Absolute Granulocytes Basophils # D-Dimer Sodium Potassium Chloride Carbon Dioxide Anion Gap BUN Creatinine Estimated GFR Glucose Hemoglobin A1c Calcium Total Bilirubin AST ALT Alkaline Phosphatase Troponin I < 0.012 < 0.012 Serum Total Protein Albumin Triglycerides 286 H Cholesterol 115 LDL Cholesterol 44 HDL Cholesterol 48 Heart Disease Risk Ratio 2.4 08/26/18 08/26/18 08/26/18 15:10 14:30 11:42 WBC RBC Hgb Hct MCV MCH MCHC RDW Plt Count MPV Gran % Eos # (Auto) Absolute Lymphs (auto) Absolute Monos (auto) Lymphocytes % Monocytes % Eosinophils % Basophils % Absolute Granulocytes Basophils # D-Dimer Sodium Potassium Chloride Carbon Dioxide Anion Gap BUN Creatinine Estimated GFR Glucose Hemoglobin A1c 6.07 H Calcium Total Bilirubin AST ALT Alkaline Phosphatase Troponin I < 0.012 < 0.012 Serum Total Protein Albumin Triglycerides Cholesterol LDL Cholesterol HDL Cholesterol Heart Disease Risk Ratio 08/26/18 08/26/18 08/26/18 11:42 11:42 11:42 WBC 7.7 RBC 4.86 Hgb 13.8 Hct 42.3 MCV 87.0 MCH 28.4 MCHC 32.6 RDW 14.8 H Plt Count 259 MPV 9.9 H Gran % 58.3 Eos # (Auto) 0.14 Absolute Lymphs (auto) 2.44 Absolute Monos (auto) 0.57 Lymphocytes % 31.6 Monocytes % 7.4 Eosinophils % 1.8 Basophils % 0.9 Absolute Granulocytes 4.49 Basophils # 0.07 D-Dimer 457 Sodium 135 L Potassium 4.4 Chloride 95 L Carbon Dioxide 28 Anion Gap 16.6 H BUN 15 Creatinine 0.65 Estimated GFR > 60.0 Glucose 98 Hemoglobin A1c Calcium 10.3 H Total Bilirubin 0.50 AST 30 ALT 28 Alkaline Phosphatase 63 Troponin I Serum Total Protein 7.5 Albumin 5.0 Triglycerides Cholesterol LDL Cholesterol HDL Cholesterol Heart Disease Risk Ratio 08/26/18 00:05 WBC RBC Hgb Hct MCV MCH MCHC RDW Plt Count MPV Gran % Eos # (Auto) Absolute Lymphs (auto) Absolute Monos (auto) Lymphocytes % Monocytes % Eosinophils % Basophils % Absolute Granulocytes Basophils # D-Dimer Sodium Potassium Chloride Carbon Dioxide Anion Gap BUN Creatinine Estimated GFR Glucose Hemoglobin A1c Calcium Total Bilirubin AST ALT Alkaline Phosphatase Troponin I < 0.012 Serum Total Protein Albumin Triglycerides Cholesterol LDL Cholesterol HDL Cholesterol Heart Disease Risk Ratio Orders (Last 24 hours) Category Date Time Status Bedrest with BRP/BSC ROUTINE Activity 08/26/18 13:27 Active Accucheck ACHS Care 08/26/18 13:27 Active Portable Machine Cutter STAT Care 08/26/18 11:38 Completed Code Status Order ROUTINE Care 08/26/18 13:27 Active IV Care Q6H Care 08/26/18 13:27 Active IV Insertion STAT Care 08/26/18 11:37 Completed Implement Chest Pain Pathway ROUTINE Care 08/26/18 13:[address] in Observation ROUTINE Care 08/26/18 13:27 Active Antione Jose, Apply ROUTINE Care 08/26/18 13:27 Active Telemetry ROUTINE Care 08/26/18 13:27 Active Weight,Daily 0600 Care 08/26/18 13:27 Active 1800 Calorie ADA Diet 08/26/18 Dinner Active Cardiac Diet Diet 08/26/18 Dinner Active CHEST 2 VIEWS (PA AND LAT) Stat Exams 08/26/18 11:38 Completed ECHO W/2D AND DOPPLER [US] Routine Exams 08/26/18 13:27 Taken CBC W DIFF Stat Lab 08/26/18 11:42 Completed CMP Stat Lab 08/26/18 11:42 Completed D-DIMER QUANTITATION Stat Lab 08/26/18 11:42 Completed HEMOGLOBIN A1C Urgent Lab 08/26/18 14:30 Completed LIPID PROFILE AM.LAB Lab 08/27/18 00:05 Completed TROPONIN Q3H Lab 08/26/18 11:42 Completed TROPONIN Q3H Lab 08/26/18 15:10 Completed TROPONIN Q3H Lab 08/26/18 18:00 Completed TROPONIN Q3H Lab 08/26/18 21:02 Completed Acetaminophen 325 mg [Tylenol 325 mg] Med 08/26/18 22:00 Active 650 mg PO BID Acetaminophen 325 mg [Tylenol 325 mg] Med 08/26/18 13:27 Active 650 mg PO Q4H PRN PRN Amlodipine Besylate 5 mg [Norvasc 5 mg] Med 08/27/18 10:00 Active 10 mg PO DAILY Aspirin EC 81 mg [Ecotrin 81 mg] Med 08/27/18 10:00 Active 81 mg PO DAILY Clopidogrel Bisulfate 75 mg [PLAVIX 75 MG Tablet] Med 08/27/18 10:00 Active 75 mg PO DAILY Enoxaparin Sodium [Enoxaparin Sodium] Med 08/26/18 14:00 Active 40 mg SQ DAILY Flu Vacc [id number](65Yr Up)/Pf [Fluzone High-Dose 2018- Med 08/27/18 10:00 Discontinued 19 Syr] 180 mcg IM .ONCE ONE Glimepiride 2 mg [Amaryl 2 MG] Med 08/27/18 08:00 Active 3 mg PO BREAKFAST Hydrochlorothiazide 25 mg [hydroDIURIL 25 MG] Med 08/27/18 10:00 Active 25 mg PO DAILY Insulin Aspart [NovoLOG Insulin] Med 08/26/18 13:27 Active See Dose Instructions SQ PRN PRN Losartan Potassium 50 mg [Cozaar 50 MG] Med 08/27/18 10:00 Active 100 mg PO DAILY Mag Hydrox/Al Hydrox/Simeth [Maalox Es 30 ml Unit Med 08/26/18 13:27 Active Dose] 30 ml PO Q4H PRN PRN Magnesium Hydroxide 30 ml [Milk of Magnesia 30 ml Med 08/26/18 13:27 Active ] 30 - 60 ml PO QDP PRN Metformin HCl 500 mg [Glucophage 500 MG] Med 08/26/18 18:00 Active 1,000 mg PO BIDWM Metoprolol Tartrate 25 mg [Lopressor 25MG Tab] Med 08/26/18 22:00 Active 37.5 mg PO BID NaCl 0.9% 1000 ml [Sodium Chloride 0.9% 1000 ML] 1,000 Med 08/26/18 12:22 Discontinued ml .ROUTE UD NaCl 0.9% 1000 ml [Sodium Chloride 0.9% 1000 ML] 1,000 Med 08/26/18 11:45 Discontinued ml IV 100 mls/hr NaCl 0.9% 500 ml [Sodium Chloride 0.9% 500 ML] 500 ml Med 08/26/18 13:30 Active IV 20 mls/hr Ondansetron HCl 4 mg/2 ml [Zofran 4 MG/2 ML VIAL] Med 08/26/18 13:27 Active 4 mg IV Q4H PRN PRN PANTOPRAZOLE 40 mg Tablet [Protonix 40MG Tablet] Med 08/27/18 10:00 Active 40 mg PO DAILY Senna/Docusate Sodium Tab [Senokot-S Tablet] Med 08/26/18 13:27 Active 2 udtab PO BID PRN PRN Simvastatin 10 mg [Zocor 10MG] Med 08/27/18 10:00 Active 10 mg PO DAILY Sitagliptin Phosphate 50 MG [Januvia 50 MG] Med 08/27/18 10:00 Active 100 mg PO DAILY EKG ONCE RT 08/26/18 19:30 Completed EKG ONCE RT 08/28/18 05:00 Active EKG ONCE RT 08/29/18 05:00 Active EKG ROUTINE RT 08/27/18 05:00 Completed Pulse Oximetry Q4H RT 08/26/18 13:27 Active - Vitals & Intake/Output Vital Signs: Vital Signs Temperature 97.8 F 08/27/18 07:25 Pulse Rate 70 08/27/18 07:25 Respiratory Rate 18 08/27/18 07:25 Blood Pressure 118/56 08/27/18 07:25 O2 Sat by Pulse Oximetry 95 08/27/18 08:00 Intake & Output: Intake & Output 08/24/18 08/25/18 08/26/18 08/27/18 11:59 11:59 11:59 11:59 Intake Total 1852 Output Total 500 Balance 1352 Weight 72.575 kg 74 kg - Lab Result Diagrams: 08/26/18 11:42 08/26/18 11:42 Lab Results-Last 24 Hrs: Accuchecks Date 08/27/18 Date 08/26/18 Date 08/26/18 Time 07:30 Time 21:00 Time 16:30 Accucheck Value: 89 Accucheck Value: 75 Accucheck Value: 109 Lab Results-Last 24 Hours 08/26/18 08/26/18 08/26/18 Range/Units 00:05 11:42 11:42 WBC 7.7 (4.0-10.5) K/mm3 RBC 4.86 (4.1-5.4) M/mm3 Hgb 13.8 (12.0-16.0) gm/dl Hct 42.3 (35-47) % MCV 87.0 (78-100) fl MCH 28.4 (26-32) pg MCHC 32.6 (32-36) g/dl RDW 14.8 H (11.5-14.0) % Plt Count 259 (150-450) K/mm3 MPV 9.9 H (6-9.5) fl Gran % 58.3 (36.0-66.0) % Eos # (Auto) 0.14 (0-0.5) Absolute Lymphs (auto) 2.44 (1.0-4.6) Absolute Monos (auto) 0.57 (0.0-1.3) Lymphocytes % 31.6 (24.0-44.0) % Monocytes % 7.4 (0.0-12.0) % Eosinophils % 1.8 (0.00-5.0) % Basophils % 0.9 (0.0-0.4) % Absolute Granulocytes 4.49 (1.4-6.9) Basophils # 0.07 (0-0.4) D-Dimer (215-500) ng/mL Sodium 135 L (137-145) mmol/L Potassium 4.4 (3.5-5.1) mmol/L Chloride 95 L (98-107) mmol/L Carbon Dioxide 28 (22-30) mmol/L Anion Gap 16.6 H (5-15) MEQ/L BUN 15 (7-17) mg/dL Creatinine 0.65 (0.52-1.04) mg/dL Estimated GFR > 60.0 ML/MIN Glucose 98 (74-106) mg/dL Hemoglobin A1c (4.5-6.0) % Calcium 10.3 H (8.4-10.2) mg/dL Total Bilirubin 0.50 (0.2-1.3) mg/dL AST 30 (14-36) U/L ALT 28 (0-35) U/L Alkaline Phosphatase 63 (38-126) U/L Troponin I < 0.012 (0.000-0.034) ng/mL Serum Total Protein 7.5 (6.3-8.2) g/dL Albumin 5.0 (3.5-5.0) g/dL Triglycerides (30-150) mg/dL Cholesterol (50-200) mg/dL LDL Cholesterol (30-100) mg/dL HDL Cholesterol (40-60) mg/dL Heart Disease Risk Ratio 08/26/18 08/26/18 08/26/18 Range/Units 11:42 11:42 14:30 WBC (4.0-10.5) K/mm3 RBC (4.1-5.4) M/mm3 Hgb (12.0-16.0) gm/dl Hct (35-47) % MCV (78-100) fl MCH (26-32) pg MCHC (32-36) g/dl RDW (11.5-14.0) % Plt Count (150-450) K/mm3 MPV (6-9.5) fl Gran % (36.0-66.0) % Eos # (Auto) (0-0.5) Absolute Lymphs (auto) (1.0-4.6) Absolute Monos (auto) (0.0-1.3) Lymphocytes % (24.0-44.0) % Monocytes % (0.0-12.0) % Eosinophils % (0.00-5.0) % Basophils % (0.0-0.4) % Absolute Granulocytes (1.4-6.9) Basophils # (0-0.4) D-Dimer 457 (215-500) ng/mL Sodium (137-145) mmol/L Potassium (3.5-5.1) mmol/L Chloride (98-107) mmol/L Carbon Dioxide (22-30) mmol/L Anion Gap (5-15) MEQ/L BUN (7-17) mg/dL Creatinine (0.52-1.04) mg/dL Estimated GFR ML/MIN Glucose (74-106) mg/dL Hemoglobin A1c 6.07 H (4.5-6.0) % Calcium (8.4-10.2) mg/dL Total Bilirubin (0.2-1.3) mg/dL AST (14-36) U/L ALT (0-35) U/L Alkaline Phosphatase (38-126) U/L Troponin I < 0.012 (0.000-0.034) ng/mL Serum Total Protein (6.3-8.2) g/dL Albumin (3.5-5.0) g/dL Triglycerides (30-150) mg/dL Cholesterol (50-200) mg/dL LDL Cholesterol (30-100) mg/dL HDL Cholesterol (40-60) mg/dL Heart Disease Risk Ratio 08/26/18 08/26/18 08/26/18 Range/Units 15:10 18:00 21:02 WBC (4.0-10.5) K/mm3 RBC (4.1-5.4) M/mm3 Hgb (12.0-16.0) gm/dl Hct (35-47) % MCV (78-100) fl MCH (26-32) pg MCHC (32-36) g/dl RDW (11.5-14.0) % Plt Count (150-450) K/mm3 MPV (6-9.5) fl Gran % (36.0-66.0) % Eos # (Auto) (0-0.5) Absolute Lymphs (auto) (1.0-4.6) Absolute Monos (auto) (0.0-1.3) Lymphocytes % (24.0-44.0) % Monocytes % (0.0-12.0) % Eosinophils % (0.00-5.0) % Basophils % (0.0-0.4) % Absolute Granulocytes (1.4-6.9) Basophils # (0-0.4) D-Dimer (215-500) ng/mL Sodium (137-145) mmol/L Potassium (3.5-5.1) mmol/L Chloride (98-107) mmol/L Carbon Dioxide (22-30) mmol/L Anion Gap (5-15) MEQ/L BUN (7-17) mg/dL Creatinine (0.52-1.04) mg/dL Estimated GFR ML/MIN Glucose (74-106) mg/dL Hemoglobin A1c (4.5-6.0) % Calcium (8.4-10.2) mg/dL Total Bilirubin (0.2-1.3) mg/dL AST (14-36) U/L ALT (0-35) U/L Alkaline Phosphatase (38-126) U/L Troponin I < 0.012 < 0.012 < 0.012 (0.000-0.034) ng/mL Serum Total Protein (6.3-8.2) g/dL Albumin (3.5-5.0) g/dL Triglycerides (30-150) mg/dL Cholesterol (50-200) mg/dL LDL Cholesterol (30-100) mg/dL HDL Cholesterol (40-60) mg/dL Heart Disease Risk Ratio 08/27/18 Range/Units 00:05 WBC (4.0-10.5) K/mm3 RBC (4.1-5.4) M/mm3 Hgb (12.0-16.0) gm/dl Hct (35-47) % MCV (78-100) fl MCH (26-32) pg MCHC (32-36) g/dl RDW (11.5-14.0) % Plt Count (150-450) K/mm3 MPV (6-9.5) fl Gran % (36.0-66.0) % Eos # (Auto) (0-0.5) Absolute Lymphs (auto) (1.0-4.6) Absolute Monos (auto) (0.0-1.3) Lymphocytes % (24.0-44.0) % Monocytes % (0.0-12.0) % Eosinophils % (0.00-5.0) % Basophils % (0.0-0.4) % Absolute Granulocytes (1.4-6.9) Basophils # (0-0.4) D-Dimer (215-500) ng/mL Sodium (137-145) mmol/L Potassium (3.5-5.1) mmol/L Chloride (98-107) mmol/L Carbon Dioxide (22-30) mmol/L Anion Gap (5-15) MEQ/L BUN (7-17) mg/dL Creatinine (0.52-1.04) mg/dL Estimated GFR ML/MIN Glucose (74-106) mg/dL Hemoglobin A1c (4.5-6.0) % Calcium (8.4-10.2) mg/dL Total Bilirubin (0.2-1.3) mg/dL AST (14-36) U/L ALT (0-35) U/L Alkaline Phosphatase (38-126) U/L Troponin I (0.000-0.034) ng/mL Serum Total Protein (6.3-8.2) g/dL Albumin (3.5-5.0) g/dL Triglycerides 286 H (30-150) mg/dL Cholesterol 115 (50-200) mg/dL LDL Cholesterol 44 (30-100) mg/dL HDL Cholesterol 48 (40-60) mg/dL Heart Disease Risk Ratio 2.4 Micro Results-Entire Visit: Accuchecks Date 08/27/18 Date 08/26/18 Date 08/26/18 Time 07:30 Time 21:00 Time 16:30 Accucheck Value: 89 Accucheck Value: 75 Accucheck Value: 109 - Radiology Exams Ordered Rad Exams-Entire Visit: Radiology Procedures Category Date Time Status CHEST 2 VIEWS (PA AND LAT) Stat Exams 08/26/18 11:38 Completed ECHO W/2D AND DOPPLER [US] Routine Exams 08/26/18 13:27 Taken - Procedures and Test Procedures and Tests throughout Hospitalization: Therapy Orders & Screens 08/26/18 19:30 EKG ONCE Comment: Q8x2, QAMx3, PRN Diagnosis: Chest pain r/o 08/27/18 05:00 EKG ROUTINE Comment: Diagnosis: Chest pain r/o 08/28/18 05:00 EKG ONCE Comment: Q8x2, QAMx3, PRN Diagnosis: Chest pain r/o 08/29/18 05:00 EKG ONCE Comment: Q8x2, QAMx3, PRN Diagnosis: Chest pain r/o - Discharge Discharge Date: 08/27/18 Disposition: Home, Self-Care Condition: Stable Prescriptions: No Action Amlodipine Besylate 10 mg [Norvasc 10 MG] 10 mg PO DAILY Glimepiride 2 mg [Amaryl 2 MG] 1.5 tab PO DAILY Clopidogrel Bisulfate 75 mg [PLAVIX 75 MG Tablet] 75 mg PO DAILY Losartan/Hydrochlorothiazide [Losartan-Hctz 100-25 mg Tab] 1 each PO DAILY Metformin HCl 500 mg [Glucophage 500 MG] 1,000 mg PO BID Omeprazole 20 MG [Prilosec 20 mg] 20 mg PO DAILY Metoprolol Tartrate 25 mg [Lopressor 25MG Tab] 1.5 tab PO BID Acetaminophen [Tylenol] 650 mg PO BID Aspirin 81 mg PO DAILY Sitagliptin Phosphate [Januvia] 100 mg PO DAILY Instructions: Chest Pain Follow up with: JOSE JUAN LIMA MD [ACTIVE STAFF] - 1 Week Forms: Discharge Instructions
[2018-08-27 12:26] VITALS: BP 131/59; PULSE 68; O2SAT 93
--- NOTE | 2018-09-01 09:43 | ECHO ---
DATE OF PROCEDURE: 08/26/2018 CLINICAL INFORMATION: Chest pain. The M-mode 2D, and Doppler echocardiogram including color flow Doppler shows the left ventricle is normal in size at 4.1 cm. The septal wall thickness is normal at 1.0 cm. The left ventricular posterior wall thickness is normal at 1.1 cm. There is no apical thrombus present. The left ventricular systolic function is normal with an ejection fraction of 77%. The right ventricle appears to be normal in size and function. The left atrium is normal at 3.6 cm. The interatrial septum is intact. The right atrium is normal. The aortic valve opens well and is trileaflet. There is no aortic regurgitation present. There is mitral valve leaflet thickening. There is mild mitral regurgitation. Mitral valve prolapse cannot be ruled out. The mitral valve E to A inflow velocity ratio is decreased at 0.75 consistent with impaired left ventricular relaxation. There is mild tricuspid regurgitation. There is mild pulmonic regurgitation. The pulmonic valve is not well visualized. The aortic root is normal at 2.9 cm. There is no pericardial effusion present. IMPRESSION: 1) NORMAL CONTRACTILITY OF THE LEFT VENTRICLE. 2) MILD PULMONIC REGURGITATION. 3) MILD TRICUSPID REGURGITATION. 4) TRACE AMOUNT OF MITRAL REGURGITATION. MITRAL VALVE PROLAPSE CANNOT BE RULED OUT. 5) THERE IS EVIDENCE OF IMPAIRED LEFT VENTRICULAR RELAXATION. 6) THERE IS MITRAL VALVE LEAFLET THICKENING.
== END 2018-08-27 13:55 | disposition home or self-care (01) ==
LOC: ED 11:35 → MED SURG 13:55
PROVIDERS: ADMIT General Practice; ATTEND General Practice
DX: R07.9 Chest pain, unspecified (principal); I25.10 Atherosclerotic heart disease of native coronary artery without angina pectoris; E11.9 Type 2 diabetes mellitus without complications; Z79.4 Long term (current) use of insulin; I10 Essential (primary) hypertension; K21.9 Gastro-esophageal reflux disease without esophagitis; M19.90 Unspecified osteoarthritis, unspecified site; E78.00 Pure hypercholesterolemia, unspecified; Z79.899 Other long term (current) drug therapy; Z23 Encounter for immunization
CPT/HCPCS: 36415; 71046; 80053; 80061; 82962; 83036; 83721; 84484; 85025; 85379; 90662; 93005; 93041; 93268; 93306; 99285; G0008; J1650; A9270-GY; G0378

== ENCOUNTER 2022-10-19 13:55 | Emergency (ER) | payer MEDICARE, OTHER ==
--- NOTE | 2022-10-19 14:22 | ERPHSYRPT ---
- History of Present Illness Time Seen by Provider: 10/19/22 14:15 Source: patient, family Exam Limitations: no limitations Physician History: This is a 71-year-old white female who presents to the emergency department with a 3-week history of left groin pain. Patient was seen at [facility] clinic 9 days ago. X-rays were obtained and patient was given steroid injection. She has had 2 physical therapy sessions. Today, the pain was excruciating when she attempts to ambulate. She can stand and weight-bear without any issues. However, the pain becomes worse when she attempts to ambulate. Patient denies injury of any kind. Patient has a history of festus roesophageal reflux disease, hypertension, diabetes and hyperlipidemia. Patient states that she is allergic to tramadol, codeine and diazepam. The codeine and tramadol have given her nausea in the past. She has used [place] and Percocet in the past without allergic reaction but again there is some nausea present. Method of Injury: other (No known injury) Severity of Pain-Max: moderate (When ambulating) Severity of Pain-Current: moderate (When ambulating) Lower Extremities Pain: thigh: left (Groin/inguinal region) Modifying Factors: Improves With: movement Associated Symptoms: other (Hurts to bear weight. However, pain worsens with ambulation) Allergies/Adverse Reactions: codeine Adverse Reaction (Verified 10/19/22 14:17) vomitting diazepam [From Valium] Adverse Reaction (Verified 10/19/22 14:17) Vomiting tramadol Adverse Reaction (Verified 10/19/22 14:17) vomiting dizziness Home Medications: Amlodipine Besylate 10 mg [Norvasc 10 MG] 10 mg PO DAILY 06/16/13 [History] Losartan/Hydrochlorothiazide [Losartan-Hctz 100-25 mg Tab] 1 each PO DAILY 06/16/13 [History] Metformin HCl 500 mg [Glucophage 500 MG] 1,000 mg PO BID 08/26/18 [History] Diclofenac Sodium 50 mg [Voltaren 50 mg] 1 tab PO TID 10/19/22 [History] Escitalopram Oxalate [Lexapro] 20 mg PO DAILY 10/19/22 [History] Glipizide 10 mg [Glucotrol 10 MG] 1 tab PO BID 10/19/22 [History] Pravastatin Sodium 1 tab PO DAILY 10/19/22 [History] Hx Influenza Vaccination/Date Given: No Hx Pneumococcal Vaccination/Date Given: Yes Travel Risk - International Travel Have you traveled outside of the country in past 3 weeks: No - Coronavirus Screening Are you exhibiting any of the following symptoms?: No Close contact with a COVID-19 positive Pt in past 14-21 Days: No - Review of Systems Constitutional: No Symptoms Eyes: No Symptoms Ears, Nose, & Throat: No Symptoms Respiratory: No Symptoms Cardiac: No Symptoms Abdominal/Gastrointestinal: No Symptoms Genitourinary Symptoms: No Symptoms Musculoskeletal: Other (Pain in the left groin/inguinal region with ambulation) Skin: No Symptoms Neurological: No Symptoms Psychological: No Symptoms Endocrine: No Symptoms Hematologic/Lymphatic: No Symptoms Immunological/Allergic: No Symptoms All Other Systems: Reviewed and Negative - Past Medical History Pertinent Past Medical History: Yes Neurological History: Stroke ENT History: Cataracts, Other Cardiac History: Coronary Artery Disease, High Cholesterol, Hypertension Respiratory History: No Pertinent History Endocrine Medical History: Diabetes Type II Musculoskeletal History: Osteoarthritis, Osteoporosis GI Medical History: GERD, Gallbladder Disease History: No Pertinent History Psycho-Social History: No Pertinent History Female Reproductive Disorders: Other Other Medical History: 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 Cardiac STENT - Past Surgical History Past Surgical History: Yes Neuro Surgical History: No Pertinent History Cardiac: Cardiac Catheterization, Cardiac Stent Respiratory: No Pertinent History Gastrointestinal: No Pertinent History Genitourinary: No Pertinent History Musculoskeletal: Orthopedic Surgery Female Surgical History: Section, Tubal Ligation, Lumpectomy Other Surgical History: bilateral knee scopes - Social History Smoking Status: Former smoker How long have you smoked: 10 Exposure to second hand smoke: No Drug Use: none Patient Lives Alone: No - Nursing Vital Signs Nursing Vital Signs: Initial Vital Signs Temperature 97.5 F 10/19/22 14:19 Pulse Rate 86 10/19/22 14:19 Respiratory Rate 17 10/19/22 14:19 Blood Pressure 197/91 10/19/22 14:19 O2 Sat by Pulse Oximetry 94 L 10/19/22 14:19 Pain Scale Pain Intensity [Left groin] 10 Pain Intensity 7 - Physical Exam General Appearance: mild distress, alert, anxiety Eyes, Ears, Nose, Throat Exam: normal ENT inspection, moist mucous membranes Neck Exam: normal inspection, non-tender, supple, full range of motion Cardiovascular/Respiratory Exam: chest non-tender, no respiratory distress Gastrointestinal/Abdominal Exam: non-tender Back Exam: normal inspection, normal range of motion, No CVA tenderness, No vertebral tenderness Hips Exam: right: non-tender, left: pain (Left inguinal region. No palpable hernia. There is no pain in the lateral left hip with palpation. No external rotation of the left lower extremity), bilateral: normal inspection, normal range of motion, no evidence of injury Legs Exam: bilateral leg: non-tender, normal inspection, normal range of motion, no evidence of injury Knees Exam: bilateral knee: non-tender, normal inspection, normal range of motion, no evidence of injury Ankle Exam: bilateral ankle: non-tender, normal inspection, normal range of motion, no evidence of injury Foot Exam: bilateral foot: non-tender, normal inspection, normal range of motion, no evidence of injury Neuro/Tendon Exam: normal sensation, normal motor functions, normal tendon functions, responds to pain, no evidence tendon injury Mental Status Exam: alert, oriented x 3, cooperative Skin Exam: normal color, warm, dry SpO2 Interpretation: normal O2 Delivery: Room Air Ordered Tests: Active Orders 24 hr Category Date Time Status PELVIS WITHOUT CONTRAST [CT] Stat Exams 10/19/22 14:24 Completed Medication Summary Discontinued Medications Generic Name Dose Route Start Last Admin Trade Name Jared PRN Reason Stop Dose Admin Morphine Sulfate 2 mg 10/19/22 14:34 10/19/22 14:42 Morphine Sulfate 2 Mg/Ml Inj IM 10/19/22 14:35 2 mg STAT ONE Administration Morphine Sulfate Confirm 10/19/22 14:41 Morphine Sulfate 2 Mg/Ml Inj Administered 10/19/22 14:42 Dose 2 mg .ROUTE .STK-MED ONE Ondansetron HCl 4 mg 10/19/22 14:34 10/19/22 14:42 Zofran 4 Mg/Udtablet Orally Disintegrating PO 10/19/22 14:35 4 mg STAT ONE Administration Ondansetron HCl Confirm 10/19/22 14:41 Zofran 4 Mg/Udtablet Orally Disintegrating Administered 10/19/22 14:42 Dose 4 mg .ROUTE .STK-MED ONE - Progress Progress: improved, pain not gone completely Progress Note: 10/19/22 15:30 CT scan of the pelvis without contrast shows moderate lower lumbar degenerative spondylosis as well as moderate left hip degenerative arthropathy. No evidence of left inguinal pathology or acute process. 10/19/22 15:51 Patient states that the 2 mg of intramuscular morphine helped tremendously. We will send a prescription to her pharmacy for Percocet 5/325 and Flexeril. Counseled pt/family regarding: diagnosis, need for follow-up, rad results - Departure Departure Disposition: Home Clinical Impression: Left groin pain Condition: Stable Critical Care Time: No Referrals: LORI CHÁVEZ [Primary Care Provider] - Follow up/PCP as directed Additional Instructions: Take your medication as prescribed. Follow-up with your orthopedic provider for further evaluation and management. Prescriptions: Oxycodone HCl/Acetaminophen [Percocet 5-325 mg Tablet] 1 each PO Q12H PRN PRN #6 tablet MDD 2 PRN Reason: Moderate To Severe Pain Cyclobenzaprine HCl 10 mg [Cyclobenzaprine 10 MG] 10 mg PO BID #10 tablet
[2022-10-19] MEDS ORDERED: MORPHINE SULFATE 2 MG INJ IM ONE (14:34)
[2022-10-19] MEDS ORDERED: ZOFRAN ODT 4 MG PO ONE (14:34)
[2022-10-19] MEDS ORDERED: ZOFRAN ODT 4 MG ONE (14:41)
[2022-10-19] MEDS ORDERED: MORPHINE SULFATE 2 MG INJ ONE (14:41)
--- NOTE | 2022-10-19 15:16 | XRAY ---
Indication: Left inguinal pain. Multiple contiguous images obtained through the pelvis only without contrast. Comparison: None Visualized small bowel loops are mildly fluid distended with fluid leveling, ileus versus enteritis. No free fluid/air. Urinary bladder and uterus are unremarkable for noncontrast exam. Mild scattered vascular calcifications including right pelvic phlebolith. Osseous structures demonstrates mild osteopenia, moderate degenerative changes of visualized lower lumbar spine, and moderate left hip degenerative arthropathy. No inguinal pathologic lymphadenopathy or hernia. Impression: 1. Mild fluid distended small bowel loops with fluid leveling, ileus versus enteritis. 2. Arteriosclerotic disease, osteopenia, moderate lower lumbar degenerative spondylosis, and moderate left hip degenerative arthropathy. 3. Remaining CT pelvis without contrast exam is negative.
[2022-10-19 16:03] VITALS: BP 160/72; PULSE 88; O2SAT 92
== END 2022-10-19 16:03 | disposition home or self-care (01) ==
LOC: ED 13:55
DX: R10.2 Pelvic and perineal pain (principal); I10 Essential (primary) hypertension; E78.5 Hyperlipidemia, unspecified; E11.9 Type 2 diabetes mellitus without complications; Z79.891 Long term (current) use of opiate analgesic; Z79.84 Long term (current) use of oral hypoglycemic drugs; Z79.899 Other long term (current) drug therapy
CPT/HCPCS: 72192; 96372; 99283; J2270; Q0162

== ENCOUNTER 2024-07-27 19:22 | Observation (INO) | payer MEDICARE, OTHER ==
--- NOTE | 2024-07-27 19:37 | ERPHSYRPT ---
- History of Present Illness Time Seen by Provider: 07/27/24 19:36 Source: patient, family Physician History: This is a 73-year-old white female patient of nurse practitioner Colton who was brought into the emergency department by her daughter because of questionable mental status changes that began last night, 07/26/2024. This evening, the patient's daughter feels that the patient's right lip is drooping and she has had some mild difficulty chewing her food. She does not usually have these types of findings or symptoms. Patient has no history of stroke or TIAs. However, she does have a significant history of dementia and is on Aricept. Patient has a history of coronary artery disease and has had a coronary artery stent placed in the past. Patient has a history of hyperlipidemia, diabetes, hypertension and gastroesophageal reflux disease. Patient denies headache. Patient denies visual changes. Patient denies chest pain. Patient denies shortness of breath. She has no abdominal pain symptoms. Timing/Duration: yesterday Severity: mild Character of Deficits: none Deficits: no difficulties Baseline/Normal Cognition: alert but confused (Alert and oriented x 2) Current Cognition: alert but confused (Alert and oriented x 2) Baseline Gait: walks w/o assistance Associated Symptoms: weakness (2 days ago, patient had bilateral lower extremity weakness.), No vision changes, No chest pain, No headache Allergies/Adverse Reactions: codeine Adverse Reaction (Verified 10/19/22 14:17) vomitting diazepam [From Valium] Adverse Reaction (Verified 10/19/22 14:17) Vomiting tramadol Adverse Reaction (Verified 10/19/22 14:17) vomiting dizziness Home Medications: Amlodipine Besylate 10 mg [Norvasc 10 MG] 10 mg PO DAILY 06/16/13 [History] Losartan/Hydrochlorothiazide [Losartan-Hctz 100-25 mg Tab] 25 mg PO DAILY 06/16/13 [History] Metformin HCl 500 mg [Glucophage 500 MG] 1,000 mg PO BID 08/26/18 [History] Diclofenac Sodium 50 mg [Voltaren 50 mg] 50 mg PO BID 10/19/22 [History] Escitalopram Oxalate [Lexapro] 20 mg PO HS 10/19/22 [History] Glipizide 10 mg [Glucotrol 10 MG] 10 mg PO BID 10/19/22 [History] Pravastatin Sodium 20 mg PO DAILY 10/19/22 [History] Acetaminophen [Acetaminophen ER] 1,300 mg PO BID 07/27/24 [History] Aspirin EC 81 mg [Ecotrin 81 mg] 81 mg PO BID 07/27/24 [History] Diphenhydramine HCl [Allergy] 25 mg PO HS 07/27/24 [History] Donepezil HCl [Aricept] 5 mg PO HS 07/27/24 [History] Melatonin 20 mg PO HS 07/27/24 [History] Memantine HCl 5 mg PO DAILY 07/27/24 [History] Omeprazole 20 mg PO DAILY 07/27/24 [History] glipiZIDE [Glipizide ER] 2.5 mg PO DAILY 07/27/24 [History] Hx Tetanus, Diphtheria Vaccination/Date Given: Yes Hx Influenza Vaccination/Date Given: No Hx Pneumococcal Vaccination/Date Given: Yes Travel Risk - International Travel Have you traveled outside of the country in past 3 weeks: No - Emerging Infectious Disease Are you exhibiting symptoms associated with any current EIDs: No - Review of Systems Constitutional: No Symptoms Eyes: No Symptoms Ears, Nose, & Throat: No Symptoms Respiratory: No Symptoms Cardiac: No Symptoms Abdominal/Gastrointestinal: No Symptoms Genitourinary Symptoms: No Symptoms Musculoskeletal: No Symptoms Skin: No Symptoms Neurological: No Symptoms Psychological: No Symptoms Endocrine: No Symptoms Hematologic/Lymphatic: No Symptoms Immunological/Allergic: No Symptoms All Other Systems: Reviewed and Negative - Past Medical History Pertinent Past Medical History: Yes Neurological History: Stroke ENT History: Cataracts, Other Cardiac History: Coronary Artery Disease, High Cholesterol, Hypertension Respiratory History: No Pertinent History Endocrine Medical History: Diabetes Type II Musculoskeletal History: Osteoarthritis, Osteoporosis GI Medical History: GERD, Gallbladder Disease History: No Pertinent History Psycho-Social History: No Pertinent History Female Reproductive Disorders: Other Other Medical History: 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 Cardiac STENT - Past Surgical History Past Surgical History: Yes Neuro Surgical History: No Pertinent History Cardiac: Cardiac Catheterization, Cardiac Stent Respiratory: No Pertinent History Gastrointestinal: No Pertinent History Genitourinary: No Pertinent History Musculoskeletal: Orthopedic Surgery Female Surgical History: Section, Tubal Ligation, Lumpectomy Other Surgical History: bilateral knee scopes - Social History Smoking Status: Former smoker How long have you smoked: 10 Exposure to second hand smoke: No Drug Use: none Patient Lives Alone: No - Nursing Vital Signs Nursing Vital Signs: Initial Vital Signs Temperature 98.5 F 07/27/24 19:40 Pulse Rate 111 H 07/27/24 19:40 Respiratory Rate 20 07/27/24 19:40 Blood Pressure 193/102 07/27/24 19:40 O2 Sat by Pulse Oximetry 99 07/27/24 19:40 Pain Scale Pain Intensity 0 - Wendy Coma Scale Best Eye Response ([place]): (4) open spontaneously Best Verbal Response (Wendy): (5) oriented Best Motor Response (Wendy): (6) obeys commands Wendy Total: 15 - Physical Exam General Appearance: no apparent distress, alert, anxiety Eye Exam: bilateral eye: normal inspection, PERRL, EOMI Ears, Nose, Throat Exam: normal ENT inspection, moist mucous membranes Neck Exam: normal inspection, non-tender, supple, full range of motion Respiratory: normal breath sounds, lungs clear, airway intact, No chest tenderness, No respiratory distress Cardiovascular: normal heart sounds, normal peripheral pulses, tachycardia Gastrointestinal: soft, normal bowel sounds, No tenderness Pelvic Exam: not done Rectal Exam: not done Back Exam: normal inspection, normal range of motion, No CVA tenderness, No vertebral tenderness Extremity Exam: normal inspection, normal range of motion, pelvis stable Mental Status: alert, oriented x 3, 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 QTc is 441) Ordered Tests: Active Orders 24 hr Category Date Time Status Acquisition Consultant STAT Care 07/27/24 20:17 Active EKG-ER Only STAT Care 07/27/24 19:50 Active IV Insertion STAT Care 07/27/24 19:50 Active NPO (ED) STAT Care 07/27/24 19:50 Active Pulse Oximetry (ED) STAT Care 07/27/24 19:[address] ANGIOGRAPHY NECK [CT] Stat Exams 07/27/24 21:53 Completed CTA HEAD W AND/OR WO CONTRAST [CT] Stat Exams 07/27/24 21:53 Completed HEAD WITHOUT CONTRAST [CT] Stat Exams 07/27/24 19:50 Taken CBC W DIFF Stat Lab 07/27/24 20:00 Completed CMP Stat Lab 07/27/24 20:00 Completed CULTURE,URINE Stat Lab 07/27/24 20:34 Received MAGNESIUM Stat Lab 07/27/24 20:00 Completed UA W/RFX UR CULTURE Stat Lab 07/27/24 20:34 Completed Transfer Order Routine Transfer 07/28/24 Ordered Medication Summary Discontinued Medications Generic Name Dose Route Start Last Admin Trade Name [place] PRN Reason Stop Dose Admin Aspirin 81 mg 07/27/24 21:54 07/27/24 22:08 Aspirin 81 Mg Tab.Chew PO 07/27/24 21:55 81 mg STAT ONE Administration Aspirin Confirm 07/27/24 22:06 Aspirin 81 Mg Tab.Chew Administered 07/27/24 22:07 Dose 81 mg .ROUTE .STK-MED ONE Clopidogrel Bisulfate 75 mg 07/27/24 21:54 07/27/24 22:08 Clopidogrel Bisulfate 75 Mg Tablet PO 07/27/24 21:55 75 mg STAT ONE Administration Clopidogrel Bisulfate Confirm 07/27/24 22:06 Clopidogrel Bisulfate 75 Mg Tablet Administered 07/27/24 22:07 Dose 75 mg .ROUTE .STK-MED ONE Lab/Rad Data: Laboratory Result Diagrams 07/27/24 20:00 07/27/24 20:00 Laboratory Results 07/27/24 07/27/24 07/27/24 Range/Units 20:34 20:00 20:00 WBC 8.9 (3.98-10.04) x10^3/uL RBC 4.55 (3.93-5.22) x10^6/uL Hgb 12.2 (11.2-15.7) g/dL Hct 37.7 (34.1-44.9) % MCV 82.9 (79.4-94.8) fL MCH 26.8 (25.6-32.2) pg MCHC 32.4 (32.2-35.5) g/dL RDW 14.7 H (11.7-14.4) % Plt Count 261 (182-369) x10^3/uL MPV 9.6 (9.4-12.3) fL Gran % 59.9 (34.0-71.1) % Immature Gran % (Auto) 0.2 (0.001-0.429) % Nucleat RBC Rel Count 0.0 (0.00-0.2) % Eos # (Auto) 0.15 (0.04-0.36) x10^3/uL Immature Gran # (Auto) 0.02 (0.001-0.031) x10^3u/L Absolute Lymphs (auto) 2.52 (1.18-3.74) x10^3/uL Absolute Monos (auto) 0.78 (0.24-0.86) x10^3/uL Absolute Nucleated RBC 0.00 (0.00-0.012) x10^3u/L Lymphocytes % 28.3 (19.3-51.7) % Monocytes % 8.8 (4.7-12.5) % Eosinophils % 1.7 (0.7-5.8) % Basophils % 1.1 (0.1-1.2) % Absolute Granulocytes 5.34 (1.56-6.13) x10^3/uL Basophils # 0.10 H (0.01-0.08) x10^3/uL Sodium 133 L (135-145) mmol/L Potassium 3.7 (3.5-5.1) mmol/L Chloride 96 L (98-107) mmol/L Carbon Dioxide 22 (22-30) mmol/L Anion Gap 18.8 H (5-15) MEQ/L BUN 15 (7-17) mg/dL Creatinine 0.75 (0.52-1.04) mg/dL Estimated GFR 84.0 ML/MIN Glucose 193 H (74-106) mg/dL Calcium 9.8 (8.4-10.2) mg/dL Magnesium 1.5 L (1.6-2.3) mg/dL Total Bilirubin 0.50 (0.2-1.3) mg/dL AST 54 H (14-36) U/L ALT 38 H (0-35) U/L Alkaline Phosphatase 74 (38-126) U/L Serum Total Protein 7.7 (6.3-8.2) g/dL Albumin 4.8 (3.5-5.0) g/dL Urine Color Yellow (Yellow) Urine Appearance Clear (Clear) Urine pH 6.5 (4.6-8.0) Ur Specific [place] <=1.005 (1.005-1.030) Urine Protein Trace A (Negative) Urine Glucose (UA) Negative (Negative) mg/dL Urine Ketones Negative (Negative) Urine Blood Negative (Negative) Urine Nitrite Negative (Negative) Urine Bilirubin Negative (Negative) Urine Urobilinogen 0.2 (0.2) mg/dL Ur Leukocyte Esterase Trace A (Negative) U Hyaline Cast (Auto) NONE SEEN (0-2) /LPF Urine Microscopic RBC 0-2 (0-5) /HPF Urine Microscopic WBC 3-5 (0-5) /HPF Ur Epithelial Cells None Seen (None Seen) /HPF Urine Bacteria None Seen (None Seen) /HPF Urine Culture Reflexed YES (NO) - Progress Progress: unchanged Progress Note: 07/27/24 20:45 My medical decision making and the assignment of moderate to high complexity to this patient's medical issue tonight is based on review of the patient's past medical history, review of the patient's medication list, review of the patient's drug allergy list, history present illness and physical findings on examination. The workup in this patient includes CT scan of the head without contrast, intravenous line placement, urinalysis, CBC, CMP, magnesium level, twelve-lead EKG. We will consider obtaining a teleneurology consultation. Differential diagnosis includes but is not limited to worsening dementia, TIA, CVA, UTI, dehydration, electrolyte abnormalities 07/27/24 22:[address] Gomes, the teleneurologist on-call. He recommends a baby aspirin now as well as 75 mg p.o. Plavix. He also recommends a stat CT angiogram of the neck and CTA of the head. Once these reports return and there is no acute findings, we will contact the telehospitalist on-call for admission for stroke rule out. 07/27/24 23:37 ct angio neck no critical thrombosis. calcified plaques @ bilat carotid bulbs with extension osteoproximal segments of internal carotid aa. cta brain atherosclerotic change in major vessels of head. heavy atherosclerotic changes in V4 segment of left vertebral with nearly 60-70% stenosis. Focal area hypodense Left thomason radiata. Could be chronic ischemic changes. Possibility of acute infarct cannot be excluded. 07/27/24 23:50 I spoke with telehospitalist Dr. Hopson. I reviewed the patient history, presenting complaint, physical findings on examination and the results of our workup as well as the discussion I had with the teleneurologist. He agrees the patient should be placed in observation for stroke rule out/workup Discussed with Dr.: Syd Counseled pt/family regarding: lab results, diagnosis, rad results Medical Desision Making - Independent Historian Additional History obtained from: Family - Discussion of managment Care discussed with:: specialist (Teleneurologist Dr. Gomes) Reviewed:: Test results, Need for additional workup - Risk of complications The pt has a high risk of morbidity or mortality based on: Decision regarding hospitilization or escalation of hosp level of care - Departure Departure Disposition: Observation Clinical Impression: CVA (cerebral vascular accident), Altered mental status Condition: Stable Critical Care Time: Yes Critical Care Time(excluding separately billable procedures): Critical 30-74 mins (40) Referrals: LORIE DONAHUE NP [Primary Care Provider] - Follow up/PCP as directed
[2024-07-27 20:19] LABS: Absolute Neutrophil Ct (ANC) 5.34 x10^3/uL (1.56-6.13); BASOPHIL % 1.1 % (0.1-1.2); Eosinophil % 1.7 % (0.7-5.8); Eosinophil (Absolute #) 0.15 x10^3/uL (0.04-0.36); Hematocrit 37.7 % (34.1-44.9); Hemoglobin 12.2 g/dL (11.2-15.7); IMMATURE GRAN # 0.02 x10^3u/L (0.001-0.031); IMMATURE GRAN % 0.2 % (0.001-0.429); Lymphocyte (Absolute #) 2.52 x10^3/uL (1.18-3.74); Lymphocytes % 28.3 % (19.3-51.7); Mean Cell Volume 82.9 fL (79.4-94.8); Mean Corpuscular Hemoglobin 26.8 pg (25.6-32.2); Mean Corpuscular Hgb Concent. 32.4 g/dL (32.2-35.5); Mean Platelet Volume 9.6 fL (9.4-12.3); Monocyte (Absolute #) 0.78 x10^3/uL (0.24-0.86); Monocytes % 8.8 % (4.7-12.5); Neutrophil % 59.9 % (34.0-71.1); Platelet Count 261 x10^3/uL (182-369); Red Blood Count 4.55 x10^6/uL (3.93-5.22); Red Cell Distribution Width 14.7 % (11.7-14.4); White Blood Count 8.9 x10^3/uL (3.98-10.04)
[2024-07-27 20:34] LABS: ALBUMIN 4.8 g/dL (3.5-5.0); ANION GAP 18.8 MEQ/L (5-15); BILIRUBIN,TOTAL 0.5 mg/dL (0.2-1.3); Calcium 9.8 mg/dL (8.4-10.2); Creatinine 1 0.75 mg/dL (0.52-1.04); MAGNESIUM 1.5 mg/dL (1.6-2.3); Potassium 3.7 mmol/L (3.5-5.1); Total Protein 7.7 g/dL (6.3-8.2)
[2024-07-27 20:47] LABS: Appearance Clear (Clear); Bilirubin Negative (Negative); Blood Negative (Negative); Glucose, Urine Negative (Negative); Ketones Negative (Negative); Leukocyte Esterase Trace (Negative); Nitrite Negative (Negative); Ph 6.5 (4.6-8.0); Protein,Urine Dip Trace (Negative); Specific Gravity <=1.005 (1.005-1.030); Urobilinogen 0.2 mg/dL (0.2)
[2024-07-27 20:53] LABS: Bacteria None Seen /HPF (None Seen); Epithelial Cells None Seen /HPF (None Seen); Hyaline Casts NONE SEEN /LPF (0-2); RBC 0-2 /HPF (0-5)
--- NOTE | 2024-07-27 21:37 | PCM.CONS ---
History of Present Illness - Neuro Consultation ED Arrival Date & Time: 07/27/24 19:22 Teleneurology Attestation & Consent: As the provider for this telehealth consult requested by the patients primary attending physician, I attest that I introduced myself to the patient, provided my credentials, disclosed my locati on, and determined that, based on a review of the patients chart and discussion with the patients primary team, telemedicine via a real-time, two-way, interactive audio and video platform is an appropriate and effective means of providing this service. The patient and I mutually agree that this visit is appropriate for telemedicine. The patient has consented to this telemedicine visit. Last known normal: 1800h PROCESS CONTROL SUPERVISOR 07/26/24 Time of stroke alert: 2026h PROCESS CONTROL SUPERVISOR Time stroke alert page returned: PROCESS CONTROL SUPERVISOR Was the patient seen on camera?: yes Providers: Attending Provider: ED Provider: PHILIPP LAST Consulting Provider: RICHA RUBY MD Reason for Consult: Acute stroke cc:: The requesting physician will be sent a copy of the consult. - Chief Complaint Patient Subjective Stated Complaint: memory loss - History of Present Illness HPI: The patient is a 73F with h/o Dementia, DM presents with ASM, right facial droop and speech disturbance. Patient's daughter Pat at the bedside. Daughter reports that pt has dementia and is on aricept and memantine. Yesterday evening pt was noticed to be off and had right mouth droop and speech was different. She was a lot more off and she brought to the ER to be evaluated. 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 Patient takes ASA 81mg dialy and pravastatin at home. Known stroke risk factors:: Smoking Review of Systems - Review of Systems Review of Systems (Narrative): Pertinent positive and negative findings as per HPI. All other systems negative. Constitutional: Denies fevers, chills, weight loss ENT: Denies tinnitus Ophthalmology: Denies diplopia, blurred vision, vision loss Respiratory: Denies SOB, cough Cardiovascular: Denies chest pains, palpitations GI: Denies nausea, vomiting : Denies hematuria Hematology: Denies excessive bleeding Musculoskeletal: Denies back pain, neck pain, joint pain Neurology: Denies headache, Mental Health: Denies anxiety - Past Medical History Past Medical History: Yes Neurological History: Stroke ENT History: Cataracts, Other Cardiac History: Coronary Artery Disease, High Cholesterol, Hypertension Respiratory History: No Pertinent History Endocrine Medical History: Diabetes Type II Musculoskelatal History: Osteoarthritis, Osteoporosis GI Medical History: GERD, Gallbladder Disease History: No Pertinent History Pyscho-Social History: No Pertinent History Reproductive Disorders: Other Comment: 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 Cardiac STENT - Past Surgical History Past Surgical History: Yes Neuro Surgical History: No Pertinent History Cardiac History: Cardiac Catheterization, Cardiac Stent Respiratory Surgery: No Pertinent History GI Surgical History: No Pertinent History Genitourinary Surgical Hx: No Pertinent History Musculskeletal Surgical Hx: Orthopedic Surgery Female Surgical History: Section, Tubal Ligation, Lumpectomy Other Surgical History: bilateral knee scopes - Social History Smoking Status: Former smoker How long have you smoked: 10 Exposure to second hand smoke: No Alcohol: None Drug Use: none - Social Determinants of Health Will the patient participate in the screening: Yes Do you worry about a steady place to live?: No Do you have any problems with any of the following?: No known problems In the past 12 months,have you had to go without utilities?: No Have you or anyone in your house had to go without enough: No Transportation Issues: No Has anyone in your support network made you feel unsafe?: No Physical Exam - Vital Signs Vital Signs: Vital Signs - 24 hr 07/27/24 07/27/24 07/27/24 19:40 20:00 20:10 Temperature 98.5 F Pulse Rate 111 H 99 H Respiratory 20 21 Rate Blood Pressure 158/68 182/94 Blood Pressure 193/102 [Right Arm] O2 Sat by Pulse 99 97 Oximetry 07/27/24 20:17 Temperature Pulse Rate Respiratory Rate Blood Pressure Blood Pressure [Right Arm] O2 Sat by Pulse 98 Oximetry - Physical Exam Tele-Neuro Physical Exam (Narrative): Gen: Well developed, well nourished. No acute distress. MS: Awake and oriented to place person and situtation and not time. Alert. Fund of knowledge, memory, and language at baseline. CV: Regular rate. No edema. international editorial producer: [place], EOMI. +blink. Unable to visualize fundi. Sensation intact. Face is symmetric. Hearing intact. Trapezii strong. Tongue midline. Motor: Antigravity in all 4 extremities. Normal tone and bulk. Sens: Intact to light touch in all 4 extremities. MSR: Unable to assess through telemedicine, no clonus noted. Mvmt: No tremors noted. TOMY/FTN intact. Gait: Deferred. NIHSS Mental status (0-3): 0 Month/age (0-2): 1 Commands (0-2): 0 Best Gaze (0-2): 0 Visual [place] (0-3):0 Facial weakness (0-3): 0 LUE (0-4): 0 RUE (0-4): 0 LLE (0-4): 0 RLE (0-4): 0 Ataxia (0-2): 0 Sensation (0-2): 0 Aphasia (0-3): 0 Dysarthria (0-2): 1 Extinction (0-2): 0 NIHSS Total: 2 - NIHSS Stroke Scale Date Completed: 07/27/24 Time Stroke Scale Completed: 19:52 Results - Labs Lab/Micro Results: Lab Results-Last 24 Hours 07/27/24 07/27/24 07/27/24 Range/Units 20:00 20:00 20:34 WBC 8.9 (3.98-10.04) x10^3/uL RBC 4.55 (3.93-5.22) x10^6/uL Hgb 12.2 (11.2-15.7) g/dL Hct 37.7 (34.1-44.9) % MCV 82.9 (79.4-94.8) fL MCH 26.8 (25.6-32.2) pg MCHC 32.4 (32.2-35.5) g/dL RDW 14.7 H (11.7-14.4) % Plt Count 261 (182-369) x10^3/uL MPV 9.6 (9.4-12.3) fL Gran % 59.9 (34.0-71.1) % Immature Gran % (Auto) 0.2 (0.001-0.429) % Nucleat RBC Rel Count 0.0 (0.00-0.2) % Eos # (Auto) 0.15 (0.04-0.36) x10^3/uL Immature Gran # (Auto) 0.02 (0.001-0.031) x10^3u/L Absolute Lymphs (auto) 2.52 (1.18-3.74) x10^3/uL Absolute Monos (auto) 0.78 (0.24-0.86) x10^3/uL Absolute Nucleated RBC 0.00 (0.00-0.012) x10^3u/L Lymphocytes % 28.3 (19.3-51.7) % Monocytes % 8.8 (4.7-12.5) % Eosinophils % 1.7 (0.7-5.8) % Basophils % 1.1 (0.1-1.2) % Absolute Granulocytes 5.34 (1.56-6.13) x10^3/uL Basophils # 0.10 H (0.01-0.08) x10^3/uL Sodium 133 L (135-145) mmol/L Potassium 3.7 (3.5-5.1) mmol/L Chloride 96 L (98-107) mmol/L Carbon Dioxide 22 (22-30) mmol/L Anion Gap 18.8 H (5-15) MEQ/L BUN 15 (7-17) mg/dL Creatinine 0.75 (0.52-1.04) mg/dL Estimated GFR 84.0 ML/MIN Glucose 193 H (74-106) mg/dL Calcium 9.8 (8.4-10.2) mg/dL Magnesium 1.5 L (1.6-2.3) mg/dL Total Bilirubin 0.50 (0.2-1.3) mg/dL AST 54 H (14-36) U/L ALT 38 H (0-35) U/L Alkaline Phosphatase 74 (38-126) U/L Serum Total Protein 7.7 (6.3-8.2) g/dL Albumin 4.8 (3.5-5.0) g/dL Urine Color Yellow (Yellow) Urine Appearance Clear (Clear) Urine pH 6.5 (4.6-8.0) Ur Specific [place] <=1.005 (1.005-1.030) Urine Protein Trace A (Negative) Urine Glucose (UA) Negative (Negative) mg/dL Urine Ketones Negative (Negative) Urine Blood Negative (Negative) Urine Nitrite Negative (Negative) Urine Bilirubin Negative (Negative) Urine Urobilinogen 0.2 (0.2) mg/dL Ur Leukocyte Esterase Trace A (Negative) U Hyaline Cast (Auto) NONE SEEN (0-2) /LPF Urine Microscopic RBC 0-2 (0-5) /HPF Urine Microscopic WBC 3-5 (0-5) /HPF Ur Epithelial Cells None Seen (None Seen) /HPF Urine Bacteria None Seen (None Seen) /HPF Urine Culture Reflexed YES (NO) - Radiology Orders Radiology Orders: Radiology Procedures Category Date Time Status HEAD WITHOUT CONTRAST [CT] Stat Exams 07/27/24 19:50 Taken Impressions & Recommendations - ED Arrival Time ED Arrival Date & Time: ED Arrival Date and Time 07/27/24 19:22 Last known well time: - NIHSS IV Thrombolysis Standard of Care: IV thrombolysis as a standard of care in acute stroke discussed with PHILIPP LAST. Risk, benefits, and options of IV thrombolytic therapy for acute ischemic stroke were discussed with the patient/family AB KAY. We discussed that use of IV tenecteplase is in line with national stroke guidelines. We discussed that risks of IV thrombolytic use include intracranial hemorrhage, other fatal bleeding risks, and angioedema. Alternatives of treatment, including not proceeding with thrombolytic therapy were discussed. Assessment & Plan - Encounter Encounter: "The entirety of this encounter was performed via Telemedicine using audio and visual " Stroke acute management: out of window for TNK - Admit to stroke unit - Frequent neuro-checks (q4h) - BP goal <130/80 - Baseline EKG and CXR - Basic labs: CBC, CMP, coagulation panel and troponin - Intravenous hydration with normal saline at 75cc per hour - NPO until after KNITTING MACHINE FIXER eval -Replace electrolytes prn-Keep K >4.0, Mg > 2.0. - Head of bed > 30 degrees for aspiration prevention and aspiration precautions Stroke workup: -CTH:no acute intracranial process -stat CTA: If LVO, get stat Neuro IR consult -MRI: -Trans-thoracic echocardiogram with bubble study -Continuous cardiac telemetry to monitor for arrhythmia -Stroke labwork: HgbA1C, lipid panel, urine drug screen Secondary prevention of stroke: -Aspirin 81mg and plavix 75mg daily for 21 day then plavix 75mg daily -pravastatin 20 mg daily (long-term goal LDL < 70) -Tight glucose control (long-term goal HgbA1c < 7%) -Stroke education and counseling -If smoker, smoking counseling and offer assistance with smoking cessation (possible nicotine patch) Stroke rehabilitation: -Physical therapy, occupational therapy, speech therapy consults -Consult social work and case management for help with discharge Other medical issues: #DM: #Dementia/AMS -resume aricept and memantine -delirium precautions Acute issues prompting hospitalization enumerated, reviewed and managed individually as above. Complexity of Chronic Problems enumerated, reviewed and managed individually as above. Independently interpreted labs and radiology. Risk of morbidity reviewed. Additional testing/treatment as discussed individually above. Discussed findings with patient/family, charge nurse/bedside nurse. Included in the discussion were the latest clinical, laboratory and imaging findings. We also discussed updated working diagnosis, overall impression and updated plan of care. In this discussion, current plan for treatment, medication indication discussed. Patient/family member agreeable to discussed plan of care. I answered all the questions to their satisfaction. Acute care plan was discussed with DR LAST Thank you for allowing us to participate in this patients care. Please call [facility] with questions, concerns, or change in patients neurological status.
[2024-07-27] MEDS ORDERED: BABY ASPIRIN 81 MG CHEW ONE (22:06)
[2024-07-27] MEDS ORDERED: PLAVIX Tablet ONE (22:06)
[2024-07-27] MEDS: BABY ASPIRIN 81 MG CHEW PO ONE (22:08)
[2024-07-27] MEDS: PLAVIX Tablet PO ONE (22:08)
--- NOTE | 2024-07-27 23:14 | XRAY ---
CLINICAL HISTORY: Strokelike symptoms COMPARISON: None. TECHNIQUE: Axial CT angiography of the neck was done with 80cc Isovue-370mg/ml intravenous contrast and sagittal and coronal reformats with MIP reconstructions. One of the following dose reduction techniques were utilized for this exam: Automated exposure control, adjustment of the mA and/or kV according to patient size, use of iterative reconstruction. One of these 3D techniques was utilized: Maximum Intensity Pixel (MIP), 3D Reconstructed Images, Volume Rendered Images, Surface Shaded Rendering.CTDI:30.08mGy, DLP: 592.91mGy*cm. FINDINGS: The aortic arch shows atherosclerotic changes with calcified plaques. Normal branching pattern noted. Bilateral common carotid arteries show mild atherosclerotic changes, otherwise normal in contrast to opacification. Calcified plaques are seen at bilateral carotid bulbs with extension in osteoproximal segments of internal carotid arteries, causing nearly 20%-30% luminal narrowing on both sides. A small eccentric fibrofatty plaque was seen at the left carotid bulb. The cervical portions of bilateral internal carotid arteries appear normal in caliber and contrast opacification. Bilateral external carotid arteries appear normal in caliber and contrast opacification. The visualized portions of bilateral vertebral arteries appear normal in caliber and contrast opacification. No arteriovenous malformation was noted. Incidental hypodense lesions in both lobes of thyroid gland with a calcified lesion in left lobe. Degenerative changes in the visualized cervical spine. IMPRESSION: 1. No critical thrombosis and CT angiography of neck 2. Calcified plaques at bilateral carotid bulbs with extension in osteoproximal segments of internal carotid arteries, causing mild, nearly 20%-30% luminal narrowing on both sides. Electronically Signed by: Samantha Rosenbaum MD. (07/27/2024 23:10:02 EDT)
--- NOTE | 2024-07-27 23:22 | XRAY ---
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 TECHNIQUE: Axial CT angiography of the head was performed with IV contrast and sagittal and coronal reconstructions were also obtained. One of these 3D techniques was utilized: Maximum Intensity Pixel (MIP), 3D Reconstructed Images, Volume Rendered Images, Surface Shaded Rendering.One of the following dose reduction techniques were utilized for this exam: Automated exposure control, adjustment of the mA and/or kV according to patient size, use of iterative reconstruction. FINDINGS: The cavernous portions of bilateral internal carotid arteries show intimal calcification, resulting in 20 to 30% luminal narrowing.. Mild atherosclerotic changes were noted in bilateral middle cerebral arteries, however, no evidence of thrombus. Bilateral anterior cerebral arteries appear normal in caliber and contrast opacification. The basilar artery and bilateral posterior cerebral arteries appear normal in caliber and contrast opacification. Heavy atherosclerotic calcification seen in V4 segment of left vertebral artery resulting in nearly 60-70% stenosis Few calcified plaques also seen in V4 segment of right vertebral artery with mild luminal narrowing. No evidence of definite thrombus / arteriovenous malformation. On comparison with CT head done on same date, focal 8 mm hypodensity seen in left thomason radiata, this could be part of chronic ischemic changes, however possibility of infarct cannot be excluded. Recommended MR with stroke protocol for better evaluation Chronic microvascular ischemic changes with senile cortical atrophy on plain CT head IMPRESSION: Atherosclerotic changes in major vessels of head as described above Heavy atherosclerotic calcification in V4 segment of left vertebral artery resulting in nearly 60-70% stenosis On comparison with CT head done on same date, focal 8 mm hypodense area in left thomason radiata, this could be part of chronic ischemic changes, however possibility of acute infarct cannot be excluded. Recommended MR with stroke protocol for better evaluation Chronic microvascular ischemic changes with senile cortical atrophy on plain CT head. 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 Jayce Guillen was informed regarding the presence of Significant Medical Findings. Electronically Signed by: Samantha Rosenbaum MD. (07/27/2024 23:18:46 EDT)
[2024-07-28] MEDS ORDERED: Zofran 4 MG/2 ML VIAL IV PRN (00:24)
[2024-07-28] MEDS ORDERED: TYLENOL 325 MG PO PRN (00:24)
[2024-07-28] MEDS: Sodium Chloride 0.9% 1000 ML 1,000 ML IV SCH (01:53)
--- NOTE | 2024-07-28 01:56 | PCM.HP ---
History of Present Illness - Chief Complaint Chief Complaint: facial droop, difficulty speaking Date: 07/28/24 History of Present Illness: is a 73 year old female with h/o DM2, HTN, dyslipidemia, and mild dementia, who was brought in by family due to concerns for difficulty speaking and facial droop. Patient's daughter noticed on Saturday evening that patient had difficulty with finding words, and had subtle drooping of her right lower face when smiling. Brought in today after did not improve. Patient recalls having expressive aphasia. She denied any receptive aphasia or dysarhtria. No numbness, no arm or leg weakness, but felt like she couldn't move her face as well. Currently feels like she has improved with her word-finding, although she is not back to her baseline and still grasps for words sometimes. She denies any history of stroke or TIA. Denies recent fevers, cough, dyspnea, chest pain, dysuria, or diarrhea. No recent changes to medications. Non-smoker. - Review of Systems All Other Systems: Reviewed and Negative Medications & Allergies Home Medications: Home Medication List Amlodipine Besylate 10 mg [Norvasc 10 MG] 10 mg PO DAILY 06/16/13 [History C onfirmed 07/27/24] Losartan/Hydrochlorothiazide [Losartan-Hctz 100-25 mg Tab] 1 tab PO DAILY 06/16/13 [History Confirmed 07/28/24] Metformin HCl 500 mg [Glucophage 500 MG] 1,000 mg PO BID 08/26/18 [History Confirmed 07/27/24] Diclofenac Sodium 50 mg [Voltaren 50 mg] 50 mg PO BID 10/19/22 [History Confirmed 07/27/24] Escitalopram Oxalate [Lexapro] 20 mg PO HS 10/19/22 [History Confirmed 07/27/24] Glipizide 10 mg [Glucotrol 10 MG] 10 mg PO BID 10/19/22 [History Confirmed 07/27/24] Pravastatin Sodium 20 mg PO DAILY 10/19/22 [History Confirmed 07/27/24] Acetaminophen [Acetaminophen ER] 1,300 mg PO BID 07/27/24 [History Confirmed 07/28/24] Aspirin EC 81 mg [Ecotrin 81 mg] 81 mg PO BID 07/27/24 [History Confirmed 07/27/24] Diphenhydramine HCl [Allergy] 25 mg PO HS 07/27/24 [History Confirmed 07/27/24] Donepezil HCl [Aricept] 5 mg PO HS 07/27/24 [History Confirmed 07/27/24] Melatonin 20 mg PO HS 07/27/24 [History Confirmed 07/27/24] Memantine HCl 5 mg PO DAILY 07/27/24 [History Confirmed 07/27/24] Omeprazole 20 mg PO DAILY 07/27/24 [History Confirmed 07/27/24] glipiZIDE [Glipizide ER] 2.5 mg PO DAILY 07/27/24 [History Confirmed 07/27/24] Allergies/Adverse Reactions: Allergies Allergy/AdvReac Type Severity Reaction Status Date / Time codeine AdvReac vomitting Verified 07/28/24 01:07 diazepam [From Valium] AdvReac Vomiting Verified 07/28/24 01:07 tramadol AdvReac vomiting Verified 07/28/24 01:07 dizziness - Past Medical History Past Medical History: Yes Neurological History: No Pertinent History ENT History: Cataracts, Other Cardiac History: High Cholesterol, Hypertension Respiratory History: No Pertinent History Endocrine Medical History: Diabetes Type II Musculoskelatal History: Osteoarthritis, Osteoporosis GI Medical History: GERD History: No Pertinent History Pyscho-Social History: No Pertinent History Reproductive Disorders: Other Comment: 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 Cardiac STENT - Past Surgical History Past Surgical History: Yes Neuro Surgical History: No Pertinent History Cardiac History: Cardiac Catheterization, Cardiac Stent Respiratory Surgery: No Pertinent History GI Surgical History: Cholecystectomy Genitourinary Surgical Hx: No Pertinent History Musculskeletal Surgical Hx: Orthopedic Surgery Female Surgical History: Section, Tubal Ligation, Lumpectomy Other Surgical History: bilateral knee scopes Significant Family History: no pertinent family hx - Social History Smoking Status: Never smoker How long have you smoked: 10 Exposure to second hand smoke: No Alcohol: None Drug Use: none - Social Determinants of Health Will the patient participate in the screening: Yes Do you worry about a steady place to live?: No Do you have any problems with any of the following?: No known problems In the past 12 months,have you had to go without utilities?: No Have you or anyone in your house had to go without enough: No Transportation Issues: No Has anyone in your support network made you feel unsafe?: No Does the patient want assistance with any of the above?: No - Physical Exam Vital Signs: Vital Signs - 24 hr Temp Pulse Resp BP BP Pulse Ox 07/28/24 01:00 87 16 97 07/28/24 00:32 97.1 F 97 H 16 176/80 96 07/28/24 00:00 95 H 17 154/86 95 07/27/24 23:30 94 H 21 153/91 95 07/27/24 23:00 105 H 19 144/98 96 07/27/24 22:59 97 H 20 95 07/27/24 22:50 101 H 23 96 07/27/24 22:40 105 H 22 96 07/27/24 22:35 110 H 20 07/27/24 22:25 180/107 07/27/24 22:00 169/104 07/27/24 21:30 108 H 18 174/98 97 07/27/24 21:20 106 H 21 152/82 97 07/27/24 20:17 98 07/27/24 20:10 182/94 07/27/24 20:00 99 H 21 158/68 97 07/27/24 19:40 98.5 F 111 H 20 193/102 99 GEN: Sitting up in bed in no acute distress NEURO: Face symmetric even with smiling, arm strength intact, sometimes slow to find words but understood everything said PSYCH: Alert, oriented x3, pleasant affect CV: regular rate & rhythm, no murmurs, no edema PULM: CTAB, no work of breathing, on room air ABD: non-distended, non-tender Results - Labs Lab/Micro Results: Lab Results-Last 24 Hours 07/27/24 07/27/24 07/27/24 Range/Units 20:00 20:00 20:34 WBC 8.9 (3.98-10.04) x10^3/uL RBC 4.55 (3.93-5.22) x10^6/uL Hgb 12.2 (11.2-15.7) g/dL Hct 37.7 (34.1-44.9) % MCV 82.9 (79.4-94.8) fL MCH 26.8 (25.6-32.2) pg MCHC 32.4 (32.2-35.5) g/dL RDW 14.7 H (11.7-14.4) % Plt Count 261 (182-369) x10^3/uL MPV 9.6 (9.4-12.3) fL Gran % 59.9 (34.0-71.1) % Immature Gran % (Auto) 0.2 (0.001-0.429) % Nucleat RBC Rel Count 0.0 (0.00-0.2) % Eos # (Auto) 0.15 (0.04-0.36) x10^3/uL Immature Gran # (Auto) 0.02 (0.001-0.031) x10^3u/L Absolute Lymphs (auto) 2.52 (1.18-3.74) x10^3/uL Absolute Monos (auto) 0.78 (0.24-0.86) x10^3/uL Absolute Nucleated RBC 0.00 (0.00-0.012) x10^3u/L Lymphocytes % 28.3 (19.3-51.7) % Monocytes % 8.8 (4.7-12.5) % Eosinophils % 1.7 (0.7-5.8) % Basophils % 1.1 (0.1-1.2) % Absolute Granulocytes 5.34 (1.56-6.13) x10^3/uL Basophils # 0.10 H (0.01-0.08) x10^3/uL Sodium 133 L (135-145) mmol/L Potassium 3.7 (3.5-5.1) mmol/L Chloride 96 L (98-107) mmol/L Carbon Dioxide 22 (22-30) mmol/L Anion Gap 18.8 H (5-15) MEQ/L BUN 15 (7-17) mg/dL Creatinine 0.75 (0.52-1.04) mg/dL Estimated GFR 84.0 ML/MIN Glucose 193 H (74-106) mg/dL Calcium 9.8 (8.4-10.2) mg/dL Magnesium 1.5 L (1.6-2.3) mg/dL Total Bilirubin 0.50 (0.2-1.3) mg/dL AST 54 H (14-36) U/L ALT 38 H (0-35) U/L Alkaline Phosphatase 74 (38-126) U/L Serum Total Protein 7.7 (6.3-8.2) g/dL Albumin 4.8 (3.5-5.0) g/dL Urine Color Yellow (Yellow) Urine Appearance Clear (Clear) Urine pH 6.5 (4.6-8.0) Ur Specific [place] <=1.005 (1.005-1.030) Urine Protein Trace A (Negative) Urine Glucose (UA) Negative (Negative) mg/dL Urine Ketones Negative (Negative) Urine Blood Negative (Negative) Urine Nitrite Negative (Negative) Urine Bilirubin Negative (Negative) Urine Urobilinogen 0.2 (0.2) mg/dL Ur Leukocyte Esterase Trace A (Negative) U Hyaline Cast (Auto) NONE SEEN (0-2) /LPF Urine Microscopic RBC 0-2 (0-5) /HPF Urine Microscopic WBC 3-5 (0-5) /HPF Ur Epithelial Cells None Seen (None Seen) /HPF Urine Bacteria None Seen (None Seen) /HPF Urine Culture Reflexed YES (NO) - Radiology Impressions Radiology Exams & Impressions: Radiology Procedures Category Date Time Status CT ANGIOGRAPHY NECK [CT] Stat Exams 07/27/24 21:53 Completed CTA HEAD W AND/OR WO CONTRAST [CT] Stat Exams 07/27/24 21:53 Completed ECHO W/2D AND DOPPLER [US] Routine Exams 07/28/24 01:49 Ordered HEAD WITHOUT CONTRAST [CT] Stat Exams 07/27/24 19:50 Taken MRI BRAIN W/O CONTRAST [MRI] Routine Exams 07/28/24 01:49 Ordered CTA Head and neck: Heavy atherosclerotic calcification in V4 segment of left vertebral artery resulting in nearly 60-70% stenosis. Calcified plaques at bilateral carotid bulbs with extension in osteoproximal segments of internal carotid arteries, causing mild, nearly 20%- 30% luminal narrowing on both sides. On comparison with CT head done on same date, focal 8 mm hypodense area in left thomason radiata, this could be part of chronic ischemic changes, however possibility of acute infarct cannot be excluded. Assessment/Plan (1) CVA (cerebral vascular accident) Current Visit: Yes Status: Acute Assessment & Plan: 73 y/o F with h/o HTN, DM2, dyslipidemia, and dementia, here with likely CVA (stroke vs TIA). ## CVA - with transient R facial droop per report, and improving expressive ap hasia. Patient has some risk factors (age, DM2, HTN). Possibly a L thomason radiata stroke seen on CT, but ambiguous. Tele-neurology consulted in ED. - place in observation - monitor on telemery to evaluate for arrhythmia as risk factor - get MRI brain to see definitive signs of stroke - obtain TTE for cardioembolic sources/risk factors - check HbA1c, lipid panel for further modifiable CVA risk factors - PT/OT evaluation - start aspirin/plavix for 21 days, then change stop aspirin and remain on plavix daily ## DM2 - Last HbA1c was 7.1 in October 2022. Only on oral meds at home. - hold metformin, glipizide - place on low-dose sliding scale insulin - check HbA1c ## HTN - elevated on arrival, but self-corrected once calmer in ED. Can allow for some permissive hypertension in any case. - resume home losartan-HTCZ 100/25 in the morning - resume home norvasc 10 in the morning ## Dementia - continue home Aricept 5, Namenda 5, Lexapro 20 Code Status: DNR Prophylaxis: low risk (Lionel score 2) Diet: diabetic Dispo: place in OBS, expect home late Saturday vs Saturday after workup completed Code(s): I63.9 - CEREBRAL INFARCTION, UNSPECIFIED Telemedicine Encounter - Telemedicine Encounter Telemedicine Encounter: "The entirety of this encounter was performed via Telemedicine" This visit was performed using real-time audio and video connection between my location and thepatients locationwith the assistance of a surrogateat the patients location. Written or verbal consent was obtained from the patient/guardian to perform this visit [email or web address]. Any patient questions regarding the telemedicine interaction were answered.
[2024-07-28 04:41] LABS: Hemoglobin 12.1 g/dL (11.2-15.7); Mean Cell Volume 82.2 fL (79.4-94.8); Mean Corpuscular Hemoglobin 26.9 pg (25.6-32.2); Mean Corpuscular Hgb Concent. 32.7 g/dL (32.2-35.5); Mean Platelet Volume 10.2 fL (9.4-12.3); Platelet Count 273 x10^3/uL (182-369); Red Cell Distribution Width 14.9 % (11.7-14.4); White Blood Count 9.4 x10^3/uL (3.98-10.04)
[2024-07-28 05:04] LABS: ANION GAP 14.3 MEQ/L (5-15); Calcium 9.8 mg/dL (8.4-10.2); Creatinine 1 0.61 mg/dL (0.52-1.04); EST GLOMERULAR FILTRATION RATE 94.3 ML/MIN; Potassium 3.3 mmol/L (3.5-5.1)
[2024-07-28] MEDS: HUMALOG SQ PRN ×2 (08:10→21:43)
[2024-07-28] MEDS: ZOCOR 20MG PO SCH (08:44)
[2024-07-28] MEDS: Namenda 5 MG PO SCH (08:44)
[2024-07-28] MEDS: PLAVIX Tablet PO SCH (08:44)
[2024-07-28] MEDS: ECOTRIN 81 MG PO SCH (08:44)
[2024-07-28] MEDS: NORVASC 5 MG PO SCH (08:45)
[2024-07-28] MEDS: Protonix 40MG Tablet PO SCH (08:45)
[2024-07-28] MEDS: Klor Con PO SCH (08:45)
[2024-07-28] MEDS: hydroDIURIL 25 MG PO SCH (08:45)
[2024-07-28] MEDS: Cozaar 50 MG PO SCH (08:45)
[2024-07-28] MEDS: VOLTAREN 50 MG PO SCH (08:46)
[2024-07-28] MEDS: MAGNESIUM SULF 2 G/50 ML BAG 2 GM/50 ML PIGGYBACK IV ONE (08:46)
--- NOTE | 2024-07-28 09:00 | XRAY ---
Indication: Altered mental status. History of dementia. Multiple axial images obtained through the head without contrast. Comparison: None Age-appropriate global atrophy with moderate periventricular degenerative micro-ischemia bilaterally. Left mid periventricular white matter demonstrates 1 cm focus round well-circumscribed hypoechogenicity favoring old infarct. No acute intracranial hemorrhage, abnormal extra-axial fluid collection, mass effect. Fourth ventricle is midline without hydrocephalus. Bony calvarium intact. Visualized paranasal sinuses and mastoid air cells are clear. Impression: Atrophy and degenerative micro-ischemia within normal limits. Small focus old infarct left mid periventricular white matter. No acute intracranial abnormalities.
[2024-07-28] MEDS ORDERED: NON-FORMULARY ITEM (Losartan/Hydrochlorothiazide [Losartan-Hctz 100-25 Mg Tab] 1 EACH Tabl PO SCH (10:00)
[2024-07-28] MEDS ORDERED: NON-FORMULARY ITEM (Omeprazole [Omeprazole] 20 MG Tablet.Dr) PO SCH (10:00)
[2024-07-28] MEDS ORDERED: NON-FORMULARY ITEM (Amlodipine Besylate 10 Mg [Norvasc 10 Mg] 10 MG Tablet) PO SCH (10:00)
[2024-07-28] MEDS ORDERED: ECOTRIN 81 MG PO SCH (10:00)
[2024-07-28] MEDS ORDERED: NON-FORMULARY ITEM (Pravastatin Sodium [Pravastatin Sodium] 20 MG Tablet) PO SCH (10:00)
--- NOTE | 2024-07-28 12:05 | XRAY ---
Indication: Right facial droop. Aphagia. Sagittal, coronal, and axial MRI brain performed without contrast using T1, T2, FLAIR, diffusion, and ADC sequences. Comparison: None Age-appropriate global atrophy with moderate periventricular degenerative micro-ischemia signal bilaterally. Diffusion images demonstrates 9 mm round focus of restricted signal left mid periventricular white matter and smaller 3 x 5 mm focus restricted signal left basal ganglia both favoring acute ischemia. No acute intracranial hemorrhage, abnormal extra-axial fluid collection, or mass effect. Fourth ventricle is midline without hydrocephalus. 7/8 cranial nerve complex bilaterally symmetric. Normal flow void signal within the major intracerebral circulation. Normal appearing cranial cervical junction and sella turcica. Impression: 1. Acute micro-ischemia left mid periventricular white matter and left basal ganglia as detailed. No acute hemorrhage or mass effect. 2. Global atrophy and degenerative micro-ischemia within normal limits.
[2024-07-28] MEDS: HUMALOG SQ ONE (18:15)
[2024-07-28] MEDS: Lopressor 25MG Tab PO ONE (18:16)
[2024-07-28] MEDS: MELATONIN PO SCH (21:44)
[2024-07-28] MEDS: Aricept 10 MG PO SCH (21:44)
[2024-07-28] MEDS: BENADRYL 25 MG CAPSULE PO SCH (21:45)
[2024-07-28] MEDS: Lexapro PO SCH (21:45)
[2024-07-28] MEDS ORDERED: [UNRECOGNIZED DRUG - REMARK] PO SCH (22:00)
[2024-07-28] MEDS ORDERED: NON-FORMULARY ITEM (Melatonin [Melatonin] 10 MG Tablet) PO SCH (22:00)
[2024-07-28] MEDS ORDERED: NON-FORMULARY ITEM (Donepezil Hcl [Aricept] 5 MG Tablet) PO SCH (22:00)
--- NOTE | 2024-07-29 05:29 | PCM.DS ---
Discharge Summary Date of Admission: 07/28/24 00:20 Date of Discharge: 07/29/24 Admitting Physician: REGGIE HEREDIA MD Consults: Consults on Case 07/28/24 15:15 Consult Neurology ROUTINE Primary Care Provider: LORIE DONAHUE Allergies Allergies codeine Adverse Reaction (Verified 07/28/24 01:07) vomitting diazepam [From Valium] Adverse Reaction (Verified 07/28/24 01:07) Vomiting tramadol Adverse Reaction (Verified 07/28/24 01:07) vomiting dizziness Hospital Summary - Hospital Course Hospital Course: is a 73 year old female with h/o DM2, HTN, dyslipidemia, and mild dementia, who was brought in by family due to concerns for difficulty speaking and facial droop. Patient's daughter noticed on Saturday evening that patient had difficulty with finding words, and had subtle drooping of her right lower face when smiling. Brought in today after did not improve. Patient recalls having expressive aphasia. She denied any receptive aphasia or dysarhtria. No numbness, no arm or leg weakness, but felt like she couldn't move her face as well. Currently feels like she has improved with her word-finding, although she is not back to her baseline and still grasps for words sometimes. She denies any history of stroke or TIA. Denies recent fevers, cough, dyspnea, chest pain, dysuria, or diarrhea. No recent changes to medications. Non-smoker. CT head demonstrating atrophy and degenerative micro-ischemia within normal limits. Small focus old infarct left mid periventricular white matter. No acute intracranial abnormalities. MRI demonstrating Acute micro-ischemia left mid periventricular white matter and left basal ganglia as detailed. No acute hemorrhage or mass effect. Patient taking Plavix/ASA/statin. Per neurology recs patient to continue ASA/plavix x 3 months - then plavix only there after. Follow up with OP neurology. Discharge Note New Diagnosis: CVA New Medications: Plavix/ASA/ increase statin Follow Up: neurology/pcp Outpatient testing to order: Latest Assessment & Plan ## CVA - with transient R facial droop per report, and improving expressive aphasia. Patient has some risk factors (age, DM2, HTN). Possibly a L thomason radiata stroke seen on CT, but ambiguous. Tele-neurology consulted in ED. - place in observation - monitor on telemery to evaluate for arrhythmia as risk factor - get MRI brain to see definitive signs of stroke - obtain TTE for cardioembolic sources/risk factors - check HbA1c, lipid panel for further modifiable CVA risk factors - PT/OT evaluation - start aspirin/plavix for 21 days, then change stop aspirin and remain on plavix daily ## DM2 - Last HbA1c was 7.1 in October 2022. Only on oral meds at home. - hold metformin, glipizide - place on low-dose sliding scale insulin - check HbA1c ## HTN - elevated on arrival, but self-corrected once calmer in ED. Can allow for some permissive hypertension in any case. - resume home losartan-HTCZ 100/25 in the morning - resume home norvasc 10 in the morning ## Dementia - continue home Aricept 5, Namenda 5, Lexapro 20 Code Status: DNR Prophylaxis: low risk (Lionel score 2) Diet: diabetic Dispo: place in OBS, expect home late Saturday vs Saturday after workup completed I spent 35 minutes [id number] with the patient on the day of discharge performing discharge exam, discussing hospital stay and discharge instructions with patient and caregivers, preparation of discharge records, prescriptions & referral forms and addressing any questions/concerns the patient had as documented above. - Vitals & Intake/Output Vital Signs: Vital Signs Temperature 97.6 F 07/29/24 03:55 Pulse Rate 76 07/29/24 03:55 Respiratory Rate 17 07/29/24 03:55 Blood Pressure 132/66 07/29/24 03:55 O2 Sat by Pulse Oximetry 95 07/29/24 03:55 Intake & Output: Intake & Output 07/26/24 07/27/24 07/28/24 07/29/24 11:59 11:59 11:59 11:59 Intake Total 390 880 Output Total 1000 300 Balance -610 580 Weight 67.7 kg - Lab Result Diagrams: 07/29/24 04:45 07/29/24 04:45 Lab Results-Last 24 Hrs: Lab Results-Last 24 Hours 07/28/24 07/28/24 07/28/24 Range/Units 04:50 07:26 11:47 Potassium (3.5-5.1) mmol/L POC Glucometer 205 H 210 H (74 to 106) mg/dL Magnesium 1.5 L (1.6-2.3) mg/dL TSH 3rd Generation (0.470-4.680) mIU/L 07/28/24 07/28/24 07/28/24 Range/Units 12:06 15:50 15:50 Potassium 4.0 D 4.0 (3.5-5.1) mmol/L POC Glucometer (74 to 106) mg/dL Magnesium (1.6-2.3) mg/dL TSH 3rd Generation 0.899 (0.470-4.680) mIU/L 07/28/24 07/28/24 Range/Units 16:16 20:33 Potassium (3.5-5.1) mmol/L POC Glucometer 327 H 280 H (74 to 106) mg/dL Magnesium (1.6-2.3) mg/dL TSH 3rd Generation (0.470-4.680) mIU/L Micro Results-Entire Visit: Accuchecks Date 07/28/24 Date 07/28/24 Date 07/28/24 Date 07/28/24 Time 21:00 Time 16:19 Time 11:49 Time 07:35 - Radiology Exams Ordered Rad Exams-Entire Visit: Radiology Procedures Category Date Time Status CT ANGIOGRAPHY NECK [CT] Stat Exams 07/27/24 21:53 Completed CTA HEAD W AND/OR WO CONTRAST [CT] Stat Exams 07/27/24 21:53 Completed ECHO W/2D AND DOPPLER [US] Routine Exams 07/28/24 01:49 Taken HEAD WITHOUT CONTRAST [CT] Stat Exams 07/27/24 19:50 Completed MRI BRAIN W/O CONTRAST [MRI] Routine Exams 07/28/24 01:49 Completed - Procedures and Test Procedures and Tests throughout Hospitalization: Therapy Orders & Screens 07/28/24 01:00 Respiratory Therapy Consult ONCE Comment: Reason For Exam: Diagnosis: Altered mental status 07/28/24 01:46 PT Eval & Treat ( Order) ONCE Reason for Eval:: eval & treat Diagnosis: stroke vs TIA OT Eval and Treat ( Order) ONCE Comment: Physician Instructions: Reason For Exam: Diagnosis: stroke vs TIA 07/28/24 09:30 Speech Therapy Eval & Treat [ST Eval & Treat ( Order)] .as ordered Comment: Physician Instructions: Reason For Exam: Evaluate: Yes Treat: Yes Reason for Eval: POSSIBLE STROKE Diagnosis: facial droop, difficulty speaking Discharge Exam General Appearance: no apparent distress Neurologic Exam: alert, oriented x 3, cooperative Eye Exam: PERRL Ears, Nose, Throat Exam: normal ENT inspection Neck Exam: normal inspection Respiratory Exam: normal breath sounds, lungs clear Cardiovascular Exam: regular rate/rhythm, normal heart sounds Gastrointestinal/Abdomen Exam: soft, normal bowel sounds Pelvic Exam: deferred Rectal Exam: deferred Back Exam: normal inspection Extremity Exam: normal inspection Skin Exam: normal color Final Diagnosis/Problem List - Final Discharge Diagnosis/Problem (1) CVA (cerebral vascular accident) Current Visit: Yes Status: Acute Code(s): I63.9 - CEREBRAL INFARCTION, UNSPECIFIED (2) Dementia Current Visit: Yes Status: Chronic Code(s): F03.90 - UNSP DEMENTIA, UNSP SEVERITY, WITHOUT BEH/PSYCH/MOOD/ANX (3) CAD (coronary artery disease) Current Visit: No Status: Chronic Code(s): I25.10 - ATHSCL HEART DISEASE OF [place] CORONARY ARTERY W/O ANG PCTRS (4) Hypertension Current Visit: No Status: Chronic Code(s): I10 - ESSENTIAL (PRIMARY) HYPERTENSION (5) Type 2 diabetes mellitus Current Visit: No Status: Chronic - Discharge Disposition: Home, Self-Care Condition: Stable Prescriptions: New Pravastatin Sodium 40 mg PO DAILY 30 Days #30 tablet Clopidogrel Bisulfate [Plavix] 75 mg PO DAILY 30 Days #30 tablet Continue Amlodipine Besylate 10 mg [Norvasc 10 MG] 10 mg PO DAILY Losartan/Hydrochlorothiazide [Losartan-Hctz 100-25 mg Tab] 1 tab PO DAILY Metformin HCl 500 mg [Glucophage 500 MG] 1,000 mg PO BID Escitalopram Oxalate [Lexapro] 20 mg PO HS Diclofenac Sodium 50 mg [Voltaren 50 mg] 50 mg PO BID Glipizide 10 mg [Glucotrol 10 MG] 10 mg PO BID Omeprazole 20 mg PO DAILY Aspirin EC 81 mg [Ecotrin 81 mg] 81 mg PO BID Diphenhydramine HCl [Allergy] 25 mg PO HS Melatonin 20 mg PO HS Donepezil HCl [Aricept] 5 mg PO HS Memantine HCl 5 mg PO DAILY glipiZIDE [Glipizide ER] 2.5 mg PO DAILY Acetaminophen [Acetaminophen ER] 1,300 mg PO BID Discontinued Pravastatin Sodium 20 mg PO DAILY Instructions: Stroke - Discharge instructions Follow up with: ASHTYN TAVERAS NP [NON-STAFF PHY W/O PRIVILEGES] - 08/27/24 10:30 am LORIE DONAHUE NP [Primary Care Provider] - 08/05/24 10:45 am Forms: Discharge Instructions
[2024-07-29 05:46] LABS: Absolute Neutrophil Ct (ANC) 5.65 x10^3/uL (1.56-6.13); BASOPHIL % 1.1 % (0.1-1.2); Eosinophil % 2.6 % (0.7-5.8); Eosinophil (Absolute #) 0.23 x10^3/uL (0.04-0.36); Hematocrit 36.6 % (34.1-44.9); Hemoglobin 11.9 g/dL (11.2-15.7); IMMATURE GRAN # 0.03 x10^3u/L (0.001-0.031); IMMATURE GRAN % 0.3 % (0.001-0.429); Lymphocyte (Absolute #) 1.88 x10^3/uL (1.18-3.74); Lymphocytes % 21.5 % (19.3-51.7); Mean Cell Volume 83.8 fL (79.4-94.8); Mean Corpuscular Hemoglobin 27.2 pg (25.6-32.2); Mean Corpuscular Hgb Concent. 32.5 g/dL (32.2-35.5); Mean Platelet Volume 10.2 fL (9.4-12.3); Monocyte (Absolute #) 0.84 x10^3/uL (0.24-0.86); Monocytes % 9.6 % (4.7-12.5); Neutrophil % 64.9 % (34.0-71.1); Platelet Count 253 x10^3/uL (182-369); Red Blood Count 4.37 x10^6/uL (3.93-5.22); Red Cell Distribution Width 14.9 % (11.7-14.4); White Blood Count 8.7 x10^3/uL (3.98-10.04)
[2024-07-29 05:53] LABS: ALBUMIN 4.3 g/dL (3.5-5.0); ANION GAP 13.6 MEQ/L (5-15); BILIRUBIN,TOTAL 0.6 mg/dL (0.2-1.3); Calcium 9.7 mg/dL (8.4-10.2); Creatinine 1 0.93 mg/dL (0.52-1.04); EST GLOMERULAR FILTRATION RATE 64.9 ML/MIN; Potassium 4.1 mmol/L (3.5-5.1); Total Protein 6.6 g/dL (6.3-8.2)
[2024-07-29 07:37] VITALS: RESP 18
[2024-07-29] MEDS: HUMALOG SQ PRN (08:04)
[2024-07-29] MEDS: ZOCOR 20MG PO SCH (09:08)
--- NOTE | 2024-07-29 11:33 | PCM.NOTE ---
Date and Time: 07/29/24 1131 Subjective Assessment: Physician Signature This document was electronically signed by: Asia Mcmillan MD 07/29/2024 11:31 AM Consult Cover Page FROM: Zac Zaragoza, Call Back Number: [phone] SUBJECT: Consult Recommendations Date and Time of Report: 07/29/2024 11:31 AM ET Items Contained in this Document: Neurology Progress Note Consult Information Member Facility: [facility] Facility Consult ID: [id number] Facility Time Zone: ET Date and Time of Request: 07-29-2024 11:00 AM ET Requesting Clinician: CATERINA CARPIO Patient Name: Penelope Medina Date of : 1950 Gender: Female Patient identity was confirmed at the beginning of the consult with the patient/family/staff using two personal identifiers: Patient name and Reason for Consult Reason for Consult: Inpatient General Patient Location and Admission Status: Inpatient ICD-10 Code ICD-10 Code (Primary): I63.9 : Cerebral infarction, unspecified ICD-10 Code: E11.9 : Type 2 diabetes mellitus without complications ICD-10 Code: I16.0 : Hypertensive urgency Progress Note Clinical Notes: Contacted by primary team that patient's MRIB was completed. MRIB showing acute stroke in L BG, L periventricular white matter. CTA H/N done showing ICAD including 60-70% stenosis of LV4 but otherwise no LVO or high grade stenosis.. No thrombus, dissection noted. A1c, lipid panel pending. TTE done, pending final read. No events on tele. Patient was previously on bASA [employer]. Recommend bASA and plavix 75 mg daily x3 months followed by plavix 75 mg daily. Recommend continued atorvastatin 40 mg daily. Stroke risk factor modification, if relevant to patient, discussed including i mportance of smoking cessation, physical activity, nutrition, addressing sleep apnea, and importance of controlling blood pressure and blood glucose. Recommend follow up with OP neurologist within 4-6 weeks. Discussed case with Radha Ortiz NP via phone. This patient was not examined via tele and the case was discussed over the phone with primary provider. All questions answered. Attestation Interaction Mode: Phone Only Time of Phone Call : 07-29-2024 11:24 AM ET Interaction Attestation: Interprofessional internet consultation was delivered through telephonic and/or electronic communication upon the request of the patients treating physician, while the requesting and the rendering provider were not in the same physical location. Written report was provided to the requesting provider. Evaluation Duration (mins): 28 [place] Timer Summary ED Arrival Date and Time: 07-27-2024 07:22 PM ET Date and Time of Request: 07-29-2024 11:00 AM ET Physician Signature This document was electronically signed by: Asia Mcmillan MD 07/29/2024 11:31 AM Objective Exam - Vital Signs Vital Signs: Vital Signs - 24 hr 07/28/24 07/28/24 07/28/24 16:00 19:54 23:55 Temperature 97.7 F 98.3 F 97.8 F Pulse Rate 106 H 89 90 Respiratory 16 17 17 Rate Blood Pressure 126/62 146/71 134/60 [Right Arm] O2 Sat by Pulse 94 L 96 95 Oximetry 07/29/24 07/29/24 03:55 07:37 Temperature 97.6 F 97.7 F Pulse Rate 76 86 Respiratory 17 18 Rate Blood Pressure 132/66 131/62 [Right Arm] O2 Sat by Pulse 95 94 L Oximetry - NIHSS Stroke Scale Date Completed: 07/29/24 Time Stroke Scale Completed: 08:00 Objective Data - Labs Lab/Micro Results: Lab Results-Last 24 Hours 07/28/24 07/28/24 07/28/24 Range/Units 11:47 12:06 15:50 WBC (3.98-10.04) x10^3/uL RBC (3.93-5.22) x10^6/uL Hgb (11.2-15.7) g/dL Hct (34.1-44.9) % MCV (79.4-94.8) fL MCH (25.6-32.2) pg MCHC (32.2-35.5) g/dL RDW (11.7-14.4) % Plt Count (182-369) x10^3/uL MPV (9.4-12.3) fL Gran % (34.0-71.1) % Immature Gran % (Auto) (0.001-0.429) % Nucleat RBC Rel Count (0.00-0.2) % Eos # (Auto) (0.04-0.36) x10^3/uL Immature Gran # (Auto) (0.001-0.031) x10^3u/L Absolute Lymphs (auto) (1.18-3.74) x10^3/uL Absolute Monos (auto) (0.24-0.86) x10^3/uL Absolute Nucleated RBC (0.00-0.012) x10^3u/L Lymphocytes % (19.3-51.7) % Monocytes % (4.7-12.5) % Eosinophils % (0.7-5.8) % Basophils % (0.1-1.2) % Absolute Granulocytes (1.56-6.13) x10^3/uL Basophils # (0.01-0.08) x10^3/uL Sodium (135-145) mmol/L Potassium 4.0 D 4.0 (3.5-5.1) mmol/L Chloride (98-107) mmol/L Carbon Dioxide (22-30) mmol/L Anion Gap (5-15) MEQ/L BUN (7-17) mg/dL Creatinine (0.52-1.04) mg/dL Estimated GFR ML/MIN Glucose (74-106) mg/dL POC Glucometer 210 H (74 to 106) mg/dL Calcium (8.4-10.2) mg/dL Magnesium (1.6-2.3) mg/dL Total Bilirubin (0.2-1.3) mg/dL AST (14-36) U/L ALT (0-35) U/L Alkaline Phosphatase (38-126) U/L Serum Total Protein (6.3-8.2) g/dL Albumin (3.5-5.0) g/dL TSH 3rd Generation (0.470-4.680) mIU/L 07/28/24 07/28/24 07/28/24 Range/Units 15:50 16:16 20:33 WBC (3.98-10.04) x10^3/uL RBC (3.93-5.22) x10^6/uL Hgb (11.2-15.7) g/dL Hct (34.1-44.9) % MCV (79.4-94.8) fL MCH (25.6-32.2) pg MCHC (32.2-35.5) g/dL RDW (11.7-14.4) % Plt Count (182-369) x10^3/uL MPV (9.4-12.3) fL Gran % (34.0-71.1) % Immature Gran % (Auto) (0.001-0.429) % Nucleat RBC Rel Count (0.00-0.2) % Eos # (Auto) (0.04-0.36) x10^3/uL Immature Gran # (Auto) (0.001-0.031) x10^3u/L Absolute Lymphs (auto) (1.18-3.74) x10^3/uL Absolute Monos (auto) (0.24-0.86) x10^3/uL Absolute Nucleated RBC (0.00-0.012) x10^3u/L Lymphocytes % (19.3-51.7) % Monocytes % (4.7-12.5) % Eosinophils % (0.7-5.8) % Basophils % (0.1-1.2) % Absolute Granulocytes (1.56-6.13) x10^3/uL Basophils # (0.01-0.08) x10^3/uL Sodium (135-145) mmol/L Potassium (3.5-5.1) mmol/L Chloride (98-107) mmol/L Carbon Dioxide (22-30) mmol/L Anion Gap (5-15) MEQ/L BUN (7-17) mg/dL Creatinine (0.52-1.04) mg/dL Estimated GFR ML/MIN Glucose (74-106) mg/dL POC Glucometer 327 H 280 H (74 to 106) mg/dL Calcium (8.4-10.2) mg/dL Magnesium (1.6-2.3) mg/dL Total Bilirubin (0.2-1.3) mg/dL AST (14-36) U/L ALT (0-35) U/L Alkaline Phosphatase (38-126) U/L Serum Total Protein (6.3-8.2) g/dL Albumin (3.5-5.0) g/dL TSH 3rd Generation 0.899 (0.470-4.680) mIU/L 07/29/24 07/29/24 07/29/24 Range/Units 04:45 04:45 04:45 WBC 8.7 (3.98-10.04) x10^3/uL RBC 4.37 (3.93-5.22) x10^6/uL Hgb 11.9 (11.2-15.7) g/dL Hct 36.6 (34.1-44.9) % MCV 83.8 (79.4-94.8) fL MCH 27.2 (25.6-32.2) pg MCHC 32.5 (32.2-35.5) g/dL RDW 14.9 H (11.7-14.4) % Plt Count 253 (182-369) x10^3/uL MPV 10.2 (9.4-12.3) fL Gran % 64.9 (34.0-71.1) % Immature Gran % (Auto) 0.3 (0.001-0.429) % Nucleat RBC Rel Count 0.0 (0.00-0.2) % Eos # (Auto) 0.23 (0.04-0.36) x10^3/uL Immature Gran # (Auto) 0.03 (0.001-0.031) x10^3u/L Absolute Lymphs (auto) 1.88 (1.18-3.74) x10^3/uL Absolute Monos (auto) 0.84 (0.24-0.86) x10^3/uL Absolute Nucleated RBC 0.00 (0.00-0.012) x10^3u/L Lymphocytes % 21.5 (19.3-51.7) % Monocytes % 9.6 (4.7-12.5) % Eosinophils % 2.6 (0.7-5.8) % Basophils % 1.1 (0.1-1.2) % Absolute Granulocytes 5.65 (1.56-6.13) x10^3/uL Basophils # 0.10 H (0.01-0.08) x10^3/uL Sodium 134 L (135-145) mmol/L Potassium 4.1 (3.5-5.1) mmol/L Chloride 98 (98-107) mmol/L Carbon Dioxide 27 (22-30) mmol/L Anion Gap 13.6 (5-15) MEQ/L BUN 15 (7-17) mg/dL Creatinine 0.93 (0.52-1.04) mg/dL Estimated GFR 64.9 ML/MIN Glucose 194 H (74-106) mg/dL POC Glucometer (74 to 106) mg/dL Calcium 9.7 (8.4-10.2) mg/dL Magnesium 1.9 (1.6-2.3) mg/dL Total Bilirubin 0.60 (0.2-1.3) mg/dL AST 22 (14-36) U/L ALT 24 (0-35) U/L Alkaline Phosphatase 78 (38-126) U/L Serum Total Protein 6.6 (6.3-8.2) g/dL Albumin 4.3 (3.5-5.0) g/dL TSH 3rd Generation (0.470-4.680) mIU/L 07/29/24 07/29/24 Range/Units 07:06 11:21 WBC (3.98-10.04) x10^3/uL RBC (3.93-5.22) x10^6/uL Hgb (11.2-15.7) g/dL Hct (34.1-44.9) % MCV (79.4-94.8) fL MCH (25.6-32.2) pg MCHC (32.2-35.5) g/dL RDW (11.7-14.4) % Plt Count (182-369) x10^3/uL MPV (9.4-12.3) fL Gran % (34.0-71.1) % Immature Gran % (Auto) (0.001-0.429) % Nucleat RBC Rel Count (0.00-0.2) % Eos # (Auto) (0.04-0.36) x10^3/uL Immature Gran # (Auto) (0.001-0.031) x10^3u/L Absolute Lymphs (auto) (1.18-3.74) x10^3/uL Absolute Monos (auto) (0.24-0.86) x10^3/uL Absolute Nucleated RBC (0.00-0.012) x10^3u/L Lymphocytes % (19.3-51.7) % Monocytes % (4.7-12.5) % Eosinophils % (0.7-5.8) % Basophils % (0.1-1.2) % Absolute Granulocytes (1.56-6.13) x10^3/uL Basophils # (0.01-0.08) x10^3/uL Sodium (135-145) mmol/L Potassium (3.5-5.1) mmol/L Chloride (98-107) mmol/L Carbon Dioxide (22-30) mmol/L Anion Gap (5-15) MEQ/L BUN (7-17) mg/dL Creatinine (0.52-1.04) mg/dL Estimated GFR ML/MIN Glucose (74-106) mg/dL POC Glucometer 202 H 188 H (74 to 106) mg/dL Calcium (8.4-10.2) mg/dL Magnesium (1.6-2.3) mg/dL Total Bilirubin (0.2-1.3) mg/dL AST (14-36) U/L ALT (0-35) U/L Alkaline Phosphatase (38-126) U/L Serum Total Protein (6.3-8.2) g/dL Albumin (3.5-5.0) g/dL TSH 3rd Generation (0.470-4.680) mIU/L Microbiology 07/27/24 20:34 Urine Culture - Preliminary Clean Catch Midstream GRAM NEGATIVE ID AND SENSITIVITY PENDING Accuchecks Date 07/29/24 Date 07/28/24 Date 07/28/24 Date 07/28/24 Time 21:00 Time 16:19 Time 11:49 - Radiology Orders Radiology Orders: Radiology Procedures Category Date Time Status CT ANGIOGRAPHY NECK [CT] Stat Exams 07/27/24 21:53 Completed CTA HEAD W AND/OR WO CONTRAST [CT] Stat Exams 07/27/24 21:53 Completed ECHO W/2D AND DOPPLER [US] Routine Exams 07/28/24 01:49 Taken HEAD WITHOUT CONTRAST [CT] Stat Exams 07/27/24 19:50 Completed MRI BRAIN W/O CONTRAST [MRI] Routine Exams 07/28/24 01:49 Completed Assessment & Plan - Encounter Encounter: "The entirety of this encounter was performed via Telemedicine using audio and visual "
[2024-07-29 12:43] VITALS: BP 134/67; PULSE 72; TEMP 97.8; O2SAT 92
== END 2024-07-29 12:06 | disposition home or self-care (01) ==
LOC: ED 19:22 → MED SURG 07-28 00:20
PROVIDERS: ADMIT Internal Medicine; ATTEND Internal Medicine
DX: I63.9 Cerebral infarction, unspecified (principal); F03.90 Unspecified dementia, unspecified severity, without behavioral disturbance, psychotic disturbance, mood disturbance, and anxiety; I25.10 Atherosclerotic heart disease of native coronary artery without angina pectoris; I10 Essential (primary) hypertension; E11.9 Type 2 diabetes mellitus without complications; E78.5 Hyperlipidemia, unspecified; Z79.899 Other long term (current) drug therapy; Z86.73 Personal history of transient ischemic attack (TIA), and cerebral infarction without residual deficits
CPT/HCPCS: 36000; 36415; 70450; 70496; 70498; 70551; 80048; 80053; 80061; 81001; 82947; 83036; 83721; 83735; 84132; 84443; 85025; 85027; 87077; 87086; 87186; 93005; 93041; 93268; 93306; 94760; 96105; 97161; 97165; 99291; G0378; Q3014; 99285; J1817; A9270-GY; J3475